=== PATIENT | male | born 1930 | race Caucasian/White ===

== ENCOUNTER 2018-07-12 10:06 | Inpatient (IN) | payer MEDICARE, BC ==
[~2018-07-12 10:06] MED LIST: ISOVUE-370 76%-LOCM 1 ML ONE
--- NOTE | 2018-07-12 10:37 | CT ---
CT BRAIN PERFORMED WITHOUT CONTRAST ENHANCEMENT: History: Stroke alert. Patient has ataxia and right facial droop, slurred speech. Comparison: 11-27-12 FINDINGS: There is generalized ventricular and sulcal prominence. There is decreased attenuation of the periven tricular white matter. No signs of intracerebral hemorrhage or extraaxial fluid collections. Mastoid air cells are clear. The right maxillary sinus is completely opacified. IMPRESSION: No acute intracranial abnormality. Findings telephoned to Dr. Mccoy at 1020 hours. POS: [facility]
[2018-07-12 10:43] LABS: PTT 26.1 SEC (22.9-36.1); Prothrombin Time 13.7 SEC (12.0-14.7)
[2018-07-12 10:47] LABS: #Eosinphils 0.1 thou/uL (0.0-0.7); #Lymphocytes 0.9 thou/uL (1.20-3.40); #Monocytes 0.8 thou/uL (0.11-0.59); #Neutrophils 6.5 thou/uL (1.40-6.50); %Basophils 0.3 % (0.0-1.0); %Eosinophils 0.7 % (0.0-10.0); %Lymphocytes 11.2 % (21.0-51.0); %Monocytes 9.2 % (0.0-10.0); %Neutrophils 78.6 % (42.0-75.0); Hemoglobin 10.2 g/dL (14.0-18.0); Mean Corpuscular Hemoglobin 33.4 pg (27.0-31.0); Mean Corpuscular Volume 98.3 fL (78.0-98.0); Mean Platelet Volume 8.2 fL (7.4-10.4); Platelet Count 107 thou/uL (130-400); Red Blood Cell (RBC) Count 3.06 mill/uL (4.70-6.10); White Blood Cell (WBC) Count 8.3 thou/uL (4.8-10.8)
[2018-07-12 10:52] LABS: ALT (SGPT) 22 U/L (8-55); AST (SGOT) 24 U/L (5-34); Albumin 4.4 g/dL (3.4-4.8); Alkaline Phosphatase 81 U/L (40-150); Anion Gap 17 mmol/L (10-20); BUN (Urea Nitrogen) 38 mg/dL (8.4-25.7); Bilirubin, Total 0.8 mg/dL (0.2-1.2); CK (CPK) 989 U/L (30-200); Calc. Creatinine Clearance 0 mL/min (70-130); Calcium 9.6 mg/dL (7.8-10.44); Carbon Dioxide 17 mmol/L (23-31); Chloride 105 mmol/L (98-107); Estimated GFR-MDRD 35; Globulin 3.1 g/dL (2.4-3.5); Glucose 233 mg/dL (83-110); Potassium 5.3 mmol/L (3.5-5.1); Protein, Total 7.5 g/dL (5.8-8.1); Sodium 134 mmol/L (136-145)
[2018-07-12 10:55] LABS: Troponin I 0.032 ng/mL (< 0.028)
[2018-07-12 10:57] LABS: PLT Morphology Comment Appears Decreased; RBC Morphology Normal
[2018-07-12 10:58] LABS: CKMB 9.1 ng/mL (0-6.6)
--- NOTE | 2018-07-12 11:25 | CT ---
CT ANGIOGRAM HEAD WITH CONTRAST: CT ANGIOGRAM NECK WITH CONTRAST: HISTORY: Stroke alert. Slurred speech. Ataxia. Right facial droop. COMPARISON: CT brain from the same day. TECHNIQUE: A CT angiogram of the head and neck were performed after the intravenous administration of contrast, and 3D rendering was provided. FINDINGS: There is a calcified scar in the right lung apex. Cervical spine alignment is normal. Moderate dege nerative changes throughout the cervical spine. There appears to be a left-sided glenohumeral joint effusion, which may be degenerative in nature. Old right clavicular fracture. No cervical adenopathy. There is soft tissue filling of the right maxillary sinus with bulging of the infundibulum. This may be sequela of chronic sinusitis. VESSELS: The aorta is unremarkable. The right vertebral artery origin is patent. The left vertebra l artery is dominant. The left vertebral artery origin is patent. There is approximately 50% narrow ing of the origin of the left vertebral artery due to calcific plaque. The right common carotid artery origin is patent. Mild atherosclerotic plaque of the carotid bulb. Using NASCET criteria, there is no hemodynamically significant stenosis of the right internal carotid artery. The left common carotid artery origin is patent. Using NASCET criteria, no hemodynamically significa nt stenosis of the left internal carotid artery. The [place] is patent. No senescent thrombosis or aneurysm formation. IMPRESSION: 1. No [place] thrombosis, stenosis, or aneurysm formation. 2. Using NASCET criteria, no hemodynamically significant stenosis of the internal carotid arteries. 3. Approximately 50% stenosis at the origin of the left vertebral artery due to calcific plaque. CODE CR (DR. BROCK AT 10:43 AM) POS: [facility]
[2018-07-12 13:08] LABS: Bilirubin Negative (Negative); Blood, Urine Large (Negative); Clarity CLEAR (Clear); Glucose, Urine (Dipstick) Negative (Negative); Leukocyte Negative (Negative); Nitrite Negative (Negative); Protein, Urine (Dipstick) Trace mg/dL (Neg-Trace); Urobilinogen 0.2 mg/dL (0.2-1.0)
[2018-07-12 13:11] LABS: Bacteria/HPF None Seen HPF (None Seen); Hyaline Casts/LPF 0-3 HYALINE CAST LPF (0-3 Hyaline); Pathc Cast-AUWi Flag 0.14 (0-2.49); RBC/HPF 0-3 HPF (0-3); Squamous Epithelial None Seen HPF (0-3); WBC/HPF None Seen HPF (0-3)
[2018-07-12] MEDS ORDERED: Dextrose 5% in Water 1,000 ML IV PRN (14:48)
[2018-07-12] MEDS ORDERED: HumaLOG 300 UNITS/3 ML VIAL SC PRN (14:48)
[2018-07-12] MEDS ORDERED: Mag-Al 1200 mg/1200 mg/30 ML UDCUP PO PRN (14:48)
[2018-07-12] MEDS ORDERED: Loperamide HCl 2 MG CAP PO PRN (14:48)
[2018-07-12] MEDS ORDERED: Dextrose 50% Abboject 50 ML SYRINGE SLOW IVP PRN (14:48)
[2018-07-12] MEDS ORDERED: Senokot 8.6 MG TAB PO PRN (14:48)
[2018-07-12] MEDS ORDERED: Ondansetron ODT 4 MG TAB PO PRN (14:48)
[2018-07-12] MEDS ORDERED: Ondansetron HCl/PF 4 MG/2 ML Vial IVP PRN (14:48)
--- NOTE | 2018-07-12 15:00 | HP ---
PRIMARY CARE PHYSICIAN: Dr. Sami Mckeon. REASON FOR ADMISSION: Stroke-like symptoms. HISTORY OF PRESENT ILLNESS: An 87-year-old male who has underlying history of hypertension, diabetes type 2, dyslipidemia, benign enlargement of prostate, peripheral vascular disease who lives at home alone. The patient has pick pulling machine tender who remains during daytime, but during night time, the pat ient remains by himself. Last night, the patient tried to go to bathroom, he fell down on the floor. Subsequently, he was not able to get up from the floor. He remains on the floor entire night, time is not known. This morning when pick pulling machine tender went to his house, he was found on the floor, at that julio e paramedics were called. Paramedics noted that patient was having right-sided facial droop. He was having some weakness on the right side and that is why patient was transferred to [facility] Room. Stroke alert was initiated. In the emergency room when ER physician evaluated at that time, his facial droop was not able to be elicited. His speech was slurred and he was not having an y more weakness. Initial NIH score was 7 and subsequently reduced to 4. The patient was not a armando date for any TPA given uncertain onset of time and improvement in symptoms. The patient had CT brain and CT angiography which was negative for any acute stroke. Routine blood tests showed rhabdomyolys is and acute kidney failure. The patient is being admitted to stroke floor for further evaluation. The patient did not have any chest pain, palpitation, or dizziness. The patient's pick pulling machine tender noticed that he was having initially diplopia at home, but in the emergency room that diplopia completely res olved. Web Marketing Strategist is present at bedside who reports that the patient's speech is still not normal. Bola colón did not have any fever, chills, UTI symptoms. He denies any constipation, diarrhea, melena, or hem atochezia. REVIEW OF SYSTEMS: Please see my HPI for pertinent positive and negative. All other review of syste ms reviewed and negative except as mentioned in the HPI. Constitutional: Weight loss or gain, ability to conduct usual activities. Skin: Rash, itching. Eyes: Double vision, pain. ENT/Mouth: Nose bleeding, neck stiffness, pain, tenderness. Cardiovascular: Palpitations, dyspnea on exertion, orthopnea. Respiratory: Shortness of breath, wheezing, cough, hemoptysis, fever or night sweats. Gastrointestinal: Poor appetite, abdominal pain, heartburn, nausea, vomiting, constipation, or diarrhea. Genitourinary: Urgency, frequency, dysuria, nocturia. Musculoskeletal: Pain, swelling. Neurologic/Psychiatric: Anxiety, depression. Allergy/Immunologic: Skin rash, bleeding tendency. ALLERGIES: No known drug allergies. CURRENT HOME MEDICATIONS: Terazosin 10 mg p.o. daily, metformin 1000 mg p.o. b.i.d., ramipril 5 mg p .o. daily, pravastatin 20 mg p.o. daily, Flomax 0.4 mg daily, cilostazol 100 mg daily, aspirin 81 mg p.o. daily, vitamin D3 5000 units p.o. daily, calcium with magnesium 1 tablet daily, fish oil 1 capsu le daily, Januvia 50 mg daily. PAST MEDICAL HISTORY: Diabetes type 2, hypertension, history of myocardial infarction in 2005, coron shadi artery disease, peripheral vascular disease, dyslipidemia, benign enlargement of prostate. PAST SURGICAL HISTORY: Appendicectomy, left knee replacement, CABG. PAST PSYCHIATRIC HISTORY: Reviewed and negative. SOCIAL HISTORY: The patient lives at home by himself. He has pick pulling machine tender during daytime. He lives al one during night time. He is a former smoker. He quit smoking more than 10 years ago. He denies an y alcohol or other illicit drug abuse. FAMILY HISTORY: No strong family history of premature coronary artery disease, stroke or cancer. EMERGENCY ROOM COURSE: The patient is given IV fluid and aspirin. PHYSICAL EXAMINATION: VITAL SIGNS: On arrival, blood pressure 161/64, pulse 96 and regular, respiratory rate 18, temperatu re 98.5, saturation 97% on room air, weight 80.3 kilograms. GENERAL: The patient is currently alert, awake, follows simple command, dysarthric. HEAD: Normocephalic, atraumatic. EYES: Pupils round, reactive to light. Extraocular muscle intact. ENT: Oropharynx within normal limits. Moist mucous membranes. No oral lesion, no pharyngeal erythe ma, no exudate. NECK: Supple, no JVD, no thyromegaly, no carotid bruit. LUNGS: Clear to auscultation without any rhonchi or rales. CARDIAC: S1, S2 regular. No gross murmur elicited, no gallop, no rub. ABDOMEN: Soft, bowel sounds present, nontender, nondistended. No organomegaly, no mass, no suprapub ic tenderness. BACK: Unremarkable, no CVA tenderness. EXTREMITIES: Upper extremity: Passive movement of all joints are normal. Lower extremity: No isaiah a. Good distal pulsation. The patient does have abrasion cyndy on both knees. NEUROLOGIC: The patient is alert, oriented x3. Slurred speech present. Face symmetrical. Motor ex amination normal on all 4 limbs. Sensation intact on all 4 limbs. The patient has difficulty perfor huong [id number] test, particularly on the left side, but the patient is not appropriately doing t esting despite recurrent explanation so not reliable. PSYCHIATRIC: Normal affect. SKIN: No skin rash. SIGNIFICANT LABORATORY DATA: EKG showing complete right bundle branch block pattern, first degree AV block, nonspecific ST-T changes. CT brain based on my review, no acute intracranial process. CT an giography head and neck negative for any acute blood clot. CBC: WBC 8.3, hemoglobin 10.2, platelet 107. INR 1.0. BMP: Sodium 134, potassium 5.3, chloride 105, carbon dioxide 17, anion gap 17, BUN 3 8, creatinine 1.85, glucose 233, calcium 9.6. LFT: AST 24, ALT 22, alkaline phosphatase 81, albumin 4.4, CK 1989, CK-MB 9.1, troponin I 0.032. Urinalysis normal other than blood large. ASSESSMENT AND PLAN: 1. Stroke-like symptoms. The patient had a fall last night, so onset was not clear. He was found w ith facial droop on the right side and some equivocal finding of cerebellar sign. He still has dysar thria, so presentation is pretty much atypical. His CT [place] angiography, brain perfusion study, and CT brain is negative. He needs more investigation to define the presentation. He is not a candidate for TPA. At this point, the patient will be admitted to stroke floor. Entire stroke te am including Neurology will be consulted. We will obtain MRI brain to rule out any acute stroke as w ell as we will obtain echocardiography to assess ejection fraction and other structural abnormality. We will monitor on telemetry. We will start aspirin 325 mg p.o. daily. We will continue with Lipit or 40 mg p.o. at bedtime. We will also continue blood pressure medication as needed basis only. We will hold his ramipril because of acute kidney injury as well as hyperkalemia. We will repeat total CK as well given we are starting Lipitor on top he has rhabdomyolysis. 2. Diabetes type 2. We will hold on metformin therapy because of renal failure. We will continue w ith insulin as per sliding scale per protocol. Diabetic diet will be given. We will continue Januvi a 50 mg p.o. daily. 3. Benign enlargement of prostate. We will continue Flomax 0.4 mg p.o. daily, terazosin 10 mg p.o. daily. 4. Peripheral arterial disease. We will continue cilostazol 100 mg p.o. daily. 5. Acute rhabdomyolysis from fall and being on the floor for entire night. The patient will be give n IV fluid and will repeat total CK level tomorrow. 6. Acute kidney failure. The patient will be given IV fluid and will repeat BMP tomorrow. I will a void nephrotoxin agent. 7. Abnormal electrolytes with hyponatremia and hyperkalemia. Because of this, the patient will be g iven IV fluid and we will hold on ramipril therapy. 8. Elevated troponin, most likely related with rhabdomyolysis, but we will do serial cardiac enzymes x3 to rule out acute coronary syndrome and we will continue with echocardiography. 9. Macrocytic anemia and thrombocytopenia. We will monitor platelet count. We will start folic aci d and vitamin B12 therapy. 10. Deep venous thrombosis prophylaxis, heparin 5000 units subcu twice daily, monitor platelet count . Gastrointestinal prophylaxis, Protonix 40 mg p.o. daily. CODE STATUS: The patient is FULL CODE. The patient does not have any surrogate decision maker at th is point. Disposition plan based on clinical course. We are expecting patient's stay in hospital more than 2 m idnights. Plan of care discussed with the patient and family member at bedside in the emergency room .
[2018-07-12] MEDS: Sodium Chloride 0.9% 1,000 ML IV SCH ×2 (15:24→23:54)
[2018-07-12 15:37] LABS: Troponin I 0.063 ng/mL (< 0.028)
[2018-07-12 15:42] VITALS: BMI 29.7
[2018-07-12 15:44] LABS: CKMB 16.1 ng/mL (0-6.6)
[2018-07-12 18:23] LABS: Troponin I 0.054 ng/mL (< 0.028)
[2018-07-12 18:25] LABS: CKMB 15.6 ng/mL (0-6.6); Critical Call CKMBM RESULT DECREASING
[2018-07-12] MEDS: Atorvastatin Calcium 40 MG TAB PO SCH (20:15)
[2018-07-12] MEDS: Terazosin HCl 5 MG CAP PO SCH (20:15)
[2018-07-12] MEDS: Heparin 5,000 UNITS/ML VIAL SC SCH (21:54)
[2018-07-13] MEDS: HYDROcodone/Acetaminophen 5/325 mg Tablet PO PRN
[2018-07-13 03:40] LABS: #Eosinphils 0.2 thou/uL (0.0-0.7); #Monocytes 0.5 thou/uL (0.11-0.59); #Neutrophils 3.6 thou/uL (1.40-6.50); %Basophils 0.8 % (0.0-1.0); %Eosinophils 2.9 % (0.0-10.0); %Lymphocytes 18.6 % (21.0-51.0); %Neutrophils 67.7 % (42.0-75.0); Hemoglobin 8.9 g/dL (14.0-18.0); Mean Corpuscular HGB CONC 33.8 g/dL (32.0-36.0); Mean Corpuscular Hemoglobin 33.3 pg (27.0-31.0); Mean Corpuscular Volume 98.5 fL (78.0-98.0); Mean Platelet Volume 7.9 fL (7.4-10.4); Platelet Count 97 thou/uL (130-400); RBC Distribution Width 13.9 % (11.5-14.5); Red Blood Cell (RBC) Count 2.66 mill/uL (4.70-6.10); White Blood Cell (WBC) Count 5.3 thou/uL (4.8-10.8)
[2018-07-13 03:48] LABS: ALT (SGPT) 27 U/L (8-55); AST (SGOT) 51 U/L (5-34); Albumin 3.8 g/dL (3.4-4.8); Alkaline Phosphatase 68 U/L (40-150); Anion Gap 14 mmol/L (10-20); BUN (Urea Nitrogen) 34 mg/dL (8.4-25.7); Bilirubin, Total 0.6 mg/dL (0.2-1.2); CK (CPK) 2319 U/L (30-200); Calc. Creatinine Clearance 37 mL/min (70-130); Calcium 8.9 mg/dL (7.8-10.44); Carbon Dioxide 20 mmol/L (23-31); Cardiac Risk 1.8 (Less than 4.5); Chloride 107 mmol/L (98-107); Cholesterol 112 mg/dl (< 200 Desired); Estimated GFR-MDRD 43; Globulin 2.7 g/dL (2.4-3.5); Glucose 144 mg/dL (83-110); HDL Cholesterol 62 mg/dL (>60 Neg Risk); LDL Cholesterol, Calculated 33 mg/dL; Potassium 4.5 mmol/L (3.5-5.1); Protein, Total 6.5 g/dL (5.8-8.1); Sodium 136 mmol/L (136-145); Triglycerides 83 mg/dL (Less than 150)
--- NOTE | 2018-07-13 08:54 | CON ---
DATE OF CONSULTATION: 07/12/2018 REFERRING PROVIDER: Soni Gonzalez M.D. REASON FOR CONSULTATION: Altered mental status. HISTORY OF PRESENT ILLNESS: Mr. Bashir is a pleasant 87-year-old male, who has been consulted for evaluation of altered mental status. History was obtained partially from the patient and majority of the history was obtained from patient's dictated H&P note. The patient who is a very poor historian who states that he lives by himself. He normally has difficulty with getting onto his bed as well as getting off his bed as his bed is placed at a higher level that he cannot reach. He states that yesterday he was trying to come off the bed and could not support himself and fell on to the floor, which prompted them to make him come to the emergency room. Per dictated H&P note, the patient was found on the floor by his caregiver. He was last seen normal by his caregiver the day before. He normally lives by himself independently. There is a caregiver who goes and sits with him during the daytime; however, during the nighttime, he is by himself. Currently, he denies any headache, chest pain, palpitation, vision changes, numbness, tingling, or weakness. PAST MEDICAL HISTORY: Significant for hypertension, diabetes, history of [place], coronary artery disease, peripheral vascular disease, dyslipidemia, BPH. PAST SURGICAL HISTORY: Significant for appendectomy, left knee replacement, and CABG. SOCIAL HISTORY: He lives alone independently. He does not smoke cigarettes, drink alcohol, or use illicit drugs. FAMILY HISTORY: Noncontributory. CURRENT MEDICATIONS: Reviewed. ALLERGIES: Include PENICILLIN. REVIEW OF SYSTEMS: As mentioned above in HPI, otherwise negative. PHYSICAL EXAMINATION: VITAL SIGNS: Blood pressure of 143/60, pulse of 86, temperature of 98, respirations of 16, O2 sats of 97% on room air. GENERAL: Well-developed, well-nourished male in no apparent distress. RESPIRATORY: Clear to auscultation bilaterally. CARDIOVASCULAR: Regular rate and rhythm. NEUROLOGIC: Mental Status: The patient is awake, alert, oriented to person only. He tends to be very tangential during conversation. Speech and language appears fluent. Cranial nerves: Pupils are 3 mm and reactive. Visual bejarano are intact. External muscles are intact. No nystagmus noted. Face is symmetric. Tongue and uvula are midline. Motor exam showed 5/5 strength in both upper and lower extremities. Sensory: Sensation is intact and symmetric. Babinski: Plantar responses flexion bilaterally. Gait, Romberg, and coordination could not be tested. LABORATORY DATA: Reviewed, which included CBC, CMP, urinalysis which is significant for sodium 134, potassium 5.3, BUN of 38, creatinine of 1.5, glucose is 173. Troponin was 0.054. CK-MB of 15.6. CT head without contrast was reviewed, which showed no acute intracranial abnormality. CT angiogram of the head and neck were reviewed, which showed no acute intracranial or extracranial vascular abnormality. IMPRESSION: 1. Altered mental status, likely toxic-metabolic encephalopathy. 2. Malignant hypertension. Mr. Bashir is a pleasant 87-year-old male, who presented after being found down on the floor. I reviewed his CT head and CT angiogram, which were nonrevealing. In my opinion, his symptoms were likely indicative of toxic- metabolic encephalopathy and underlying dementia that may be affecting his cognitive abilities. Continue supportive care. I will recommend obtaining MRI brain without contrast in the morning. If it is normal, then the patient will continue with current medical management and no further neurological workup would be needed. Thank you for your consultation. MARTHA
[2018-07-13] MEDS: Folic Acid 1 MG TAB PO SCH (09:49)
[2018-07-13] MEDS: Cilostazol 100 MG TAB PO SCH (09:49)
[2018-07-13] MEDS: Cyanocobalamin (Vitamin B-12) 1,000 MCG TAB PO SCH (09:49)
[2018-07-13] MEDS: Aspirin 325 MG TAB PO SCH (09:49)
[2018-07-13] MEDS: Tamsulosin HCl 0.4 MG CAP PO SCH (09:49)
[2018-07-13] MEDS: Heparin 5,000 UNITS/ML VIAL SC SCH ×2 (09:51→22:12)
[2018-07-13] MEDS: Alogliptin 6.25 MG TAB PO SCH (10:02)
--- NOTE | 2018-07-13 11:13 | MRI ---
MRI BRAIN WITHOUT CONTRAST: Date: 07/13/18 HISTORY: TIA. FINDINGS: Correlation is made with previous day's CT scan. No restricted diffusion is seen. Changes of cortical atrophy and chronic small vessel ischemic diseas e are again seen. Ventricular size is appropriate and the basilar cisterns are patent. No evidence of infarct, hemorrhage, midline shift, or abnormal extra-axial fluid collections are seen. There is muc osal disease in the paranasal sinuses. IMPRESSION: No evidence of acute intracranial process. POS: [facility]
--- NOTE | 2018-07-13 12:31 | PDOC.PN ---
- Subjective Encounter Start Date: 07/13/18 Encounter Start Time: 07:30 -: old records requested/rev Patient seen and examined. No new complaints. No overnight events pt is very weak - Objective Resuscitation Status: Resuscitation Status FULL:Full Resuscitation MAR Reviewed: Yes Vital Signs & Weight: Vital Signs (12 hours) Temp Pulse Resp BP Pulse Ox 07/13/18 11:34 98.8 F 66 16 123/54 L 95 07/13/18 08:10 99.2 F 82 16 93 L 07/13/18 07:43 99.2 F 82 16 153/67 H 93 L 07/13/18 04:00 98.6 F 74 16 116/61 95 Weight Weight 173 lb 1.6 oz I&O: 07/12/18 07/13/18 07/14/18 06:59 06:59 06:59 Intake Total 1740 Output Total 300 Balance 1440 Result Diagrams: 07/13/18 03:19 07/13/18 03:19 Additional Labs: Accuchecks 07/13/18 07/13/18 07/12/18 10:43 05:41 20:57 POC Glucose 170 H 144 H 173 H 07/12/18 16:52 POC Glucose 143 H Radiology Reviewed by me: Yes (mri is normal) EKG Reviewed by me: Yes Phys Exam - Physical Examination Constitutional: NAD HEENT: PERRLA, moist MMs, sclera anicteric Neck: no JVD, supple Respiratory: no wheezing, no rales, no rhonchi Cardiovascular: RRR, no significant murmur, no rub Gastrointestinal: soft, non-tender, no distention, positive bowel sounds Musculoskeletal: no edema, pulses present Neurological: non-focal, normal sensation, moves all 4 limbs Lymphatic: no nodes Psychiatric: normal affect Deviation from normal: hard of hearing Skin: no rash, normal turgor Dx/Plan (1) Acute kidney failure Status: Acute Comment: improving (2) Elevated troponin Code(s): R74.8 - ABNORMAL LEVELS OF OTHER SERUM ENZYMES Status: Acute Comment: due to high total CK (3) Physical deconditioning Code(s): R53.81 - OTHER MALAISE Status: Acute (4) Rhabdomyolysis Code(s): M62.82 - RHABDOMYOLYSIS Status: Acute (5) Stroke-like symptoms Code(s): R29.90 - UNSPECIFIED SYMPTOMS AND SIGNS INVOLVING THE NERVOUS SYSTEM Status: Acute Comment: ruled out stroke (6) Diabetes type 2, controlled Code(s): E11.9 - TYPE 2 DIABETES MELLITUS WITHOUT COMPLICATIONS Status: Chronic (7) Dyslipidemia Code(s): E78.5 - HYPERLIPIDEMIA, UNSPECIFIED Status: Chronic (8) Hypertension Code(s): I10 - ESSENTIAL (PRIMARY) HYPERTENSION Status: Chronic (9) Macrocytic anemia Code(s): D53.9 - NUTRITIONAL ANEMIA, UNSPECIFIED Status: Chronic (10) PAD (peripheral artery disease) Code(s): I73.9 - PERIPHERAL VASCULAR DISEASE, UNSPECIFIED Status: Chronic (11) Hyperkalemia Code(s): E87.5 - HYPERKALEMIA Status: Resolved - Plan cont current plan of care, plan discussed w/ family, PT/OT, social insurance analyst * continue IVF * repeat labs tomorrow * if ck still high or going up, then will dc statins * medication reviewed as below * symptomatic treatment * neurology recommendation noted * today pt/ot * may need placement * discussed with career development associate. Review of Systems - Review of Systems Constitutional: weakness, malaise. negative: fever, chills, sweats, other ENT: negative: Ear Pain, Ear Discharge, Nose Pain, Nose Discharge, Nose Congestion, Mouth Pain, Mouth Swelling, Throat Pain, Throat Swelling, Other Respiratory: negative: Cough, Dry, Shortness of Breath, Hemoptysis, SOB with Excertion, Pleuritic Pain, Sputum, Wheezing Cardiovascular: negative: chest pain, palpitations, orthopnea, paroxysmal nocturnal dyspnea, edema, light headedness, other Gastrointestinal: negative: Nausea, Vomiting, Abdominal Pain, Diarrhea, Constipation, Melena, Hematochezia, Other Genitourinary: negative: Dysuria, Frequency, Incontinence, Hematuria, Retention , Other Musculoskeletal: negative: Neck Pain, Shoulder Pain, Arm Pain, Back Pain, Hand Pain, Leg Pain, Foot Pain, Other Skin: negative: Rash, Lesions, [place], Bruising, Other Neurological: negative: Weakness, Numbness, Incoordination, Change in Speech, Confusion, Seizures, Other - Medications/Allergies Allergies/Adverse Reactions: Allergies Allergy/AdvReac Type Severity Reaction Status Date / Time penicillin G Allergy Rash Verified 07/12/18 14:49 Medications: Current Medications Acetaminophen (Tylenol) 650 mg PO Q4H PRN PRN Reason: Headache/Fever or Pain Hydrocodone Bitart/Acetaminophen ([place] 5/325) 1 tab PO Q4H PRN PRN Reason: Moderate Pain (4-6) Last Admin: 07/13/18 00:00 Dose: 1 tab Al Hydroxide/Mg Hydroxide (Maalox) 30 ml PO Q6H PRN PRN Reason: Heartburn or Indigestion Alogliptin Benzoate (Alogliptin) 12.5 mg PO DAILY [facility] Last Admin: 07/13/18 10:02 Dose: 12.5 mg Aspirin (Aspirin) 325 mg PO DAILY [facility] Last Admin: 07/13/18 09:49 Dose: 325 mg Atorvastatin Calcium (Lipitor) 40 mg PO HS [facility] Last Admin: 07/12/18 20:15 Dose: 40 mg Cholecalciferol (Vitamin D3) 5,000 units PO DAILY [facility] Last Admin: 07/13/18 09:49 Dose: 5,000 units Cilostazol (Pletal) 100 mg PO DAILY [facility] Last Admin: 07/13/18 09:49 Dose: 100 mg Cyanocobalamin (Vitamin B-12) 1,000 mcg PO DAILY [facility] Last Admin: 07/13/18 09:49 Dose: 1,000 mcg Dextrose/Water (Dextrose 50%) 25 gm SLOW IVP PRN PRN PRN Reason: Hypoglycemia Folic Acid (Folvite) 1 mg PO DAILY [facility] Last Admin: 07/13/18 09:49 Dose: 1 mg Glucagon (Glucagon) 1 mg IM PRN PRN PRN Reason: Hypoglycemia Heparin Sodium (Porcine) (Heparin) 5,000 units SC BID [facility] Last Admin: 07/13/18 09:51 Dose: 5,000 units Dextrose/Water (D5w) 1,000 mls @ 0 mls/hr IV .Q0M PRN PRN Reason: Hypoglycemia Sodium Chloride (Normal Saline 0.9%) 1,000 mls @ 100 mls/hr IV .Q10H [facility] Last Admin: 07/12/18 23:54 Dose: 1,000 mls Insulin Human Lispro (Humalog) 0 units SC .MODERATE SLIDING SC PRN PRN Reason: Moderate Correctional Scale Insulin Human Lispro (Humalog) 0 units SC .BEDTIME SLIDING SC PRN PRN Reason: Bedtime Correctional Scale Loperamide HCl (Imodium) 2 mg PO PRN PRN PRN Reason: Diarrhea/Loose Stools Magnesium Hydroxide (Milk Of Magnesium) 30 ml PO DAILYPRN PRN PRN Reason: Constipation Ondansetron HCl (Zofran Odt) 4 mg PO Q6H PRN PRN Reason: Nausea/Vomiting Ondansetron HCl (Zofran) 4 mg IVP Q6H PRN PRN Reason: Nausea/Vomiting Pantoprazole Sodium (Protonix) 40 mg PO DAILY [facility] Last Admin: 07/13/18 09:49 Dose: 40 mg Senna (Senokot) 2 tab PO HSPRN PRN PRN Reason: Constipation Sodium Chloride (Flush - Normal Saline) 10 ml IVF PRN PRN PRN Reason: Saline Flush Tamsulosin HCl (Flomax) 0.4 mg PO DAILY [facility] Last Admin: 07/13/18 09:49 Dose: 0.4 mg Terazosin HCl (Hytrin) 10 mg PO [facility] Last Admin: 07/12/18 20:15 Dose: 10 mg
[2018-07-13] MEDS: Terazosin HCl 5 MG CAP PO SCH (20:59)
[2018-07-13] MEDS: Sodium Chloride 0.9% 1,000 ML IV SCH (20:59)
[2018-07-13] MEDS: Atorvastatin Calcium 40 MG TAB PO SCH (20:59)
[2018-07-14] MEDS: Sodium Chloride 0.9% 1,000 ML IV SCH ×3 (05:07→18:23)
[2018-07-14] MEDS: Folic Acid 1 MG TAB PO SCH (08:36)
[2018-07-14] MEDS: Aspirin 325 MG TAB PO SCH (08:36)
[2018-07-14] MEDS: Heparin 5,000 UNITS/ML VIAL SC SCH ×2 (08:36→20:08)
[2018-07-14] MEDS: HYDROcodone/Acetaminophen 5/325 mg Tablet PO PRN (08:36)
[2018-07-14] MEDS: Cilostazol 100 MG TAB PO SCH (08:36)
[2018-07-14] MEDS: Tamsulosin HCl 0.4 MG CAP PO SCH (08:37)
[2018-07-14] MEDS: Cyanocobalamin (Vitamin B-12) 1,000 MCG TAB PO SCH (08:37)
[2018-07-14] MEDS: Alogliptin 6.25 MG TAB PO SCH (08:37)
[2018-07-14 09:03] LABS: #Eosinphils 0.1 thou/uL (0.0-0.7); #Monocytes 0.5 thou/uL (0.11-0.59); #Neutrophils 2.9 thou/uL (1.40-6.50); %Basophils 0.9 % (0.0-1.0); %Eosinophils 3.1 % (0.0-10.0); %Lymphocytes 22.2 % (21.0-51.0); %Monocytes 10.3 % (0.0-10.0); %Neutrophils 63.5 % (42.0-75.0); Hemoglobin 9.5 g/dL (14.0-18.0); Mean Corpuscular HGB CONC 35.4 g/dL (32.0-36.0); Mean Corpuscular Hemoglobin 34.1 pg (27.0-31.0); Mean Corpuscular Volume 96.2 fL (78.0-98.0); Mean Platelet Volume 8.1 fL (7.4-10.4); Platelet Count 107 thou/uL (130-400); RBC Distribution Width 13.6 % (11.5-14.5); Red Blood Cell (RBC) Count 2.79 mill/uL (4.70-6.10); White Blood Cell (WBC) Count 4.5 thou/uL (4.8-10.8)
[2018-07-14 09:22] LABS: Anion Gap 13 mmol/L (10-20); BUN (Urea Nitrogen) 28 mg/dL (8.4-25.7); CK (CPK) 1793 U/L (30-200); Calc. Creatinine Clearance 37 mL/min (70-130); Calcium 9.3 mg/dL (7.8-10.44); Carbon Dioxide 21 mmol/L (23-31); Chloride 106 mmol/L (98-107); Estimated GFR-MDRD 44; Glucose 145 mg/dL (83-110); Potassium 4.3 mmol/L (3.5-5.1); Sodium 136 mmol/L (136-145)
--- NOTE | 2018-07-14 10:50 | PDOC.PN ---
- Subjective Encounter Start Date: 07/14/18 Encounter Start Time: 07:45 Patient seen and examined. No new complaints. No overnight events - Objective Resuscitation Status: Resuscitation Status FULL:Full Resuscitation MAR Reviewed: Yes Vital Signs & Weight: Vital Signs (12 hours) Temp Pulse Resp BP Pulse Ox 07/14/18 08:00 98.7 F 66 16 138/65 92 L 07/14/18 03:30 98.1 F 76 18 119/60 92 L 07/13/18 23:23 98.9 F 82 20 120/64 93 L Weight Weight 173 lb 1.6 oz I&O: 07/13/18 07/14/18 07/15/18 06:59 06:59 06:59 Intake Total 1740 240 Output Total 300 200 Balance 1440 -200 240 Result Diagrams: 07/14/18 08:23 07/14/18 08:23 Additional Labs: Accuchecks 07/14/18 07/14/18 07/13/18 10:38 05:37 21:01 POC Glucose 174 H 147 H 200 H 07/13/18 07/13/18 16:58 10:43 POC Glucose 164 H 170 H EKG Reviewed by me: Yes Phys Exam - Physical Examination Constitutional: NAD HEENT: PERRLA, moist MMs, sclera anicteric Neck: no JVD, supple Respiratory: no wheezing, no rales, no rhonchi Cardiovascular: RRR, no significant murmur, no rub Gastrointestinal: soft, non-tender, no distention, positive bowel sounds Musculoskeletal: no edema, pulses present Neurological: non-focal, normal sensation, moves all 4 limbs Lymphatic: no nodes Psychiatric: normal affect, A&O x 3 Skin: no rash, normal turgor Dx/Plan (1) Acute kidney failure Status: Acute Comment: improving (2) Elevated troponin Code(s): R74.8 - ABNORMAL LEVELS OF OTHER SERUM ENZYMES Status: Acute Comment: due to high total CK (3) Physical deconditioning Code(s): R53.81 - OTHER MALAISE Status: Acute (4) Rhabdomyolysis Code(s): M62.82 - RHABDOMYOLYSIS Status: Acute (5) Stroke-like symptoms Code(s): R29.90 - UNSPECIFIED SYMPTOMS AND SIGNS INVOLVING THE NERVOUS SYSTEM Status: Acute Comment: ruled out stroke (6) Diabetes type 2, controlled Code(s): E11.9 - TYPE 2 DIABETES MELLITUS WITHOUT COMPLICATIONS Status: Chronic (7) Dyslipidemia Code(s): E78.5 - HYPERLIPIDEMIA, UNSPECIFIED Status: Chronic (8) Hypertension Code(s): I10 - ESSENTIAL (PRIMARY) HYPERTENSION Status: Chronic (9) Macrocytic anemia Code(s): D53.9 - NUTRITIONAL ANEMIA, UNSPECIFIED Status: Chronic (10) PAD (peripheral artery disease) Code(s): I73.9 - PERIPHERAL VASCULAR DISEASE, UNSPECIFIED Status: Chronic (11) Hyperkalemia Code(s): E87.5 - HYPERKALEMIA Status: Resolved - Plan cont current plan of care, PT/OT, social services manager * CK improving, creatinine is improving * pt refusing for placement, * continue IVF * continue PT * we recommend snu placement for his safety * medication reviewed as below * symptomatic treatment * expecting discharge over weekend. Review of Systems - Review of Systems Eyes: negative: Pain, Vision Change, Conjunctivae Inflammation, Eyelid Inflammation, Redness, Other ENT: negative: Ear Pain, Ear Discharge, Nose Pain, Nose Discharge, Nose Congestion, Mouth Pain, Mouth Swelling, Throat Pain, Throat Swelling, Other Respiratory: negative: Cough, Dry, Shortness of Breath, Hemoptysis, SOB with Excertion, Pleuritic Pain, Sputum, Wheezing Cardiovascular: negative: chest pain, palpitations, orthopnea, paroxysmal nocturnal dyspnea, edema, light headedness, other Gastrointestinal: negative: Nausea, Vomiting, Abdominal Pain, Diarrhea, Constipation, Melena, Hematochezia, Other Genitourinary: negative: Dysuria, Frequency, Incontinence, Hematuria, Retention , Other Musculoskeletal: negative: Neck Pain, Shoulder Pain, Arm Pain, Back Pain, Hand Pain, Leg Pain, Foot Pain, Other Skin: negative: Rash, Lesions, Cody, Bruising, Other - Medications/Allergies Allergies/Adverse Reactions: Allergies Allergy/AdvReac Type Severity Reaction Status Date / Time penicillin G Allergy Rash Verified 07/12/18 14:49 Medications: Current Medications Acetaminophen (Tylenol) 650 mg PO Q4H PRN PRN Reason: Headache/Fever or Pain Hydrocodone Bitart/Acetaminophen ([place] 5/325) 1 tab PO Q4H PRN PRN Reason: Moderate Pain (4-6) Last Admin: 07/14/18 08:36 Dose: 1 tab Al Hydroxide/Mg Hydroxide (Maalox) 30 ml PO Q6H PRN PRN Reason: Heartburn or Indigestion Alogliptin Benzoate (Alogliptin) 12.5 mg PO DAILY [facility] Last Admin: 07/14/18 08:37 Dose: 12.5 mg Aspirin (Aspirin) 325 mg PO DAILY [facility] Last Admin: 07/14/18 08:36 Dose: 325 mg Atorvastatin Calcium (Lipitor) 40 mg PO HS [facility] Last Admin: 07/13/18 20:59 Dose: 40 mg Cholecalciferol (Vitamin D3) 5,000 units PO DAILY [facility] Last Admin: 07/14/18 08:36 Dose: 5,000 units Cilostazol (Pletal) 100 mg PO DAILY [facility] Last Admin: 07/14/18 08:36 Dose: 100 mg Cyanocobalamin (Vitamin B-12) 1,000 mcg PO DAILY [facility] Last Admin: 07/14/18 08:37 Dose: 1,000 mcg Dextrose/Water (Dextrose 50%) 25 gm SLOW IVP PRN PRN PRN Reason: Hypoglycemia Folic Acid (Folvite) 1 mg PO DAILY [facility] Last Admin: 07/14/18 08:36 Dose: 1 mg Glucagon (Glucagon) 1 mg IM PRN PRN PRN Reason: Hypoglycemia Heparin Sodium (Porcine) (Heparin) 5,000 units SC BID [facility] Last Admin: 07/14/18 08:36 Dose: 5,000 units Dextrose/Water (D5w) 1,000 mls @ 0 mls/hr IV .Q0M PRN PRN Reason: Hypoglycemia Sodium Chloride (Normal Saline 0.9%) 1,000 mls @ 100 mls/hr IV .Q10H [facility] Last Admin: 07/14/18 05:07 Dose: Not Given Insulin Human Lispro (Humalog) 0 units SC .MODERATE SLIDING SC PRN PRN Reason: Moderate Correctional Scale Insulin Human Lispro (Humalog) 0 units SC .BEDTIME SLIDING SC PRN PRN Reason: Bedtime Correctional Scale Loperamide HCl (Imodium) 2 mg PO PRN PRN PRN Reason: Diarrhea/Loose Stools Magnesium Hydroxide (Milk Of Magnesium) 30 ml PO DAILYPRN PRN PRN Reason: Constipation Ondansetron HCl (Zofran Odt) 4 mg PO Q6H PRN PRN Reason: Nausea/Vomiting Ondansetron HCl (Zofran) 4 mg IVP Q6H PRN PRN Reason: Nausea/Vomiting Pantoprazole Sodium (Protonix) 40 mg PO DAILY [facility] Last Admin: 07/14/18 08:36 Dose: 40 mg Senna (Senokot) 2 tab PO HSPRN PRN PRN Reason: Constipation Sodium Chloride (Flush - Normal Saline) 10 ml IVF PRN PRN PRN Reason: Saline Flush Tamsulosin HCl (Flomax) 0.4 mg PO DAILY [facility] Last Admin: 07/14/18 08:37 Dose: 0.4 mg Terazosin HCl (Hytrin) 10 mg PO HS [facility] Last Admin: 07/13/18 20:59 Dose: 10 mg
[2018-07-14] MEDS: Terazosin HCl 5 MG CAP PO SCH (20:08)
[2018-07-14] MEDS: Atorvastatin Calcium 40 MG TAB PO SCH (20:08)
[2018-07-15] MEDS: HYDROcodone/Acetaminophen 5/325 mg Tablet PO PRN (04:02)
[2018-07-15] MEDS: Tamsulosin HCl 0.4 MG CAP PO SCH (08:03)
[2018-07-15] MEDS: Folic Acid 1 MG TAB PO SCH (08:03)
[2018-07-15] MEDS: Cilostazol 100 MG TAB PO SCH (08:04)
[2018-07-15] MEDS: Heparin 5,000 UNITS/ML VIAL SC SCH ×2 (08:04→20:52)
[2018-07-15] MEDS: Cyanocobalamin (Vitamin B-12) 1,000 MCG TAB PO SCH (08:04)
[2018-07-15] MEDS: Aspirin 325 MG TAB PO SCH (08:04)
[2018-07-15 08:19] LABS: Anion Gap 13 mmol/L (10-20); BUN (Urea Nitrogen) 29 mg/dL (8.4-25.7); CK (CPK) 902 U/L (30-200); Calc. Creatinine Clearance 37 mL/min (70-130); Calcium 8.8 mg/dL (7.8-10.44); Carbon Dioxide 21 mmol/L (23-31); Chloride 108 mmol/L (98-107); Estimated GFR-MDRD 44; Glucose 130 mg/dL (83-110); Potassium 4.1 mmol/L (3.5-5.1); Sodium 138 mmol/L (136-145)
[2018-07-15] MEDS: Alogliptin 6.25 MG TAB PO SCH (08:31)
[2018-07-15] MEDS: Milk Of Magnesia 30 ML UDCUP PO PRN (09:21)
--- NOTE | 2018-07-15 10:47 | PDOC.PN ---
- Subjective Encounter Start Date: 07/15/18 Encounter Start Time: 07:30 Patient seen and examined. No new complaints. No overnight events - Objective Resuscitation Status: Resuscitation Status FULL:Full Resuscitation MAR Reviewed: Yes Vital Signs & Weight: Vital Signs (12 hours) Temp Pulse Resp BP Pulse Ox 07/15/18 08:00 98.3 F 66 16 07/15/18 07:40 98.3 F 66 16 142/66 H 96 07/15/18 03:35 98.4 F 62 16 129/63 94 L 07/15/18 00:20 99.4 F 58 L 16 143/75 H 98 Weight Weight 173 lb 1.6 oz I&O: 07/14/18 07/15/18 07/16/18 06:59 06:59 06:59 Intake Total 1764 240 Output Total 200 350 Balance -200 1414 240 Result Diagrams: 07/14/18 08:23 07/15/18 07:42 Additional Labs: Accuchecks 07/15/18 07/14/18 07/14/18 06:31 20:15 16:35 POC Glucose 162 H 165 H 138 H 07/14/18 10:38 POC Glucose 174 H EKG Reviewed by me: Yes Phys Exam - Physical Examination Constitutional: NAD HEENT: PERRLA, moist MMs, sclera anicteric Neck: no JVD, supple Respiratory: no wheezing, no rales, no rhonchi Cardiovascular: RRR, no significant murmur, no rub Gastrointestinal: soft, non-tender, no distention, positive bowel sounds Musculoskeletal: no edema, pulses present Neurological: non-focal, normal sensation, moves all 4 limbs Lymphatic: no nodes Psychiatric: normal affect, A&O x 3 Deviation from normal: hard of hearing Skin: no rash, normal turgor Dx/Plan (1) Acute kidney failure Status: Acute Comment: improving (2) Elevated troponin Code(s): R74.8 - ABNORMAL LEVELS OF OTHER SERUM ENZYMES Status: Acute Comment: due to high total CK (3) Physical deconditioning Code(s): R53.81 - OTHER MALAISE Status: Acute (4) Rhabdomyolysis Code(s): M62.82 - RHABDOMYOLYSIS Status: Acute (5) Stroke-like symptoms Code(s): R29.90 - UNSPECIFIED SYMPTOMS AND SIGNS INVOLVING THE NERVOUS SYSTEM Status: Ruled-out Comment: ruled out stroke (6) Diabetes type 2, controlled Code(s): E11.9 - TYPE 2 DIABETES MELLITUS WITHOUT COMPLICATIONS Status: Chronic (7) Dyslipidemia Code(s): E78.5 - HYPERLIPIDEMIA, UNSPECIFIED Status: Chronic (8) Hypertension Code(s): I10 - ESSENTIAL (PRIMARY) HYPERTENSION Status: Chronic (9) Macrocytic anemia Code(s): D53.9 - NUTRITIONAL ANEMIA, UNSPECIFIED Status: Chronic (10) PAD (peripheral artery disease) Code(s): I73.9 - PERIPHERAL VASCULAR DISEASE, UNSPECIFIED Status: Chronic (11) Hyperkalemia Code(s): E87.5 - HYPERKALEMIA Status: Resolved (12) Thrombocytopenia Code(s): D69.6 - THROMBOCYTOPENIA, UNSPECIFIED Status: Acute (13) UTI (urinary tract infection) Status: Acute - Plan cont current plan of care, plan discussed w/ family, continue antibiotics, PT/OT , nursing home social worker * as urine culture positive for pseudomonas, will start iv levaquin * dc ivf * CK continue to improve so as renal function * pt agreed with snu placement, await arrangement * medication reviewed as below * symptomatic treatment. Review of Systems - Review of Systems Eyes: negative: Pain, Vision Change, Conjunctivae Inflammation, Eyelid Inflammation, Redness, Other ENT: negative: Ear Pain, Ear Discharge, Nose Pain, Nose Discharge, Nose Congestion, Mouth Pain, Mouth Swelling, Throat Pain, Throat Swelling, Other Respiratory: negative: Cough, Dry, Shortness of Breath, Hemoptysis, SOB with Excertion, Pleuritic Pain, Sputum, Wheezing Cardiovascular: negative: chest pain, palpitations, orthopnea, paroxysmal nocturnal dyspnea, edema, light headedness, other Gastrointestinal: negative: Nausea, Vomiting, Abdominal Pain, Diarrhea, Constipation, Melena, Hematochezia, Other Genitourinary: negative: Dysuria, Frequency, Incontinence, Hematuria, Retention , Other Musculoskeletal: negative: Neck Pain, Shoulder Pain, Arm Pain, Back Pain, Hand Pain, Leg Pain, Foot Pain, Other - Medications/Allergies Allergies/Adverse Reactions: Allergies Allergy/AdvReac Type Severity Reaction Status Date / Time penicillin G Allergy Rash Verified 07/12/18 14:49 Medications: Current Medications Acetaminophen (Tylenol) 650 mg PO Q4H PRN PRN Reason: Headache/Fever or Pain Hydrocodone Bitart/Acetaminophen ([place] 5/325) 1 tab PO Q4H PRN PRN Reason: Moderate Pain (4-6) Last Admin: 07/15/18 04:02 Dose: 1 tab Al Hydroxide/Mg Hydroxide (Maalox) 30 ml PO Q6H PRN PRN Reason: Heartburn or Indigestion Alogliptin Benzoate (Alogliptin) 12.5 mg PO DAILY [facility] Last Admin: 07/15/18 08:31 Dose: 12.5 mg Aspirin (Aspirin) 325 mg PO DAILY [facility] Last Admin: 07/15/18 08:04 Dose: 325 mg Atorvastatin Calcium (Lipitor) 40 mg PO HS [facility] Last Admin: 07/14/18 20:08 Dose: 40 mg Cholecalciferol (Vitamin D3) 5,000 units PO DAILY [facility] Last Admin: 07/15/18 08:03 Dose: 5,000 units Cilostazol (Pletal) 100 mg PO DAILY [facility] Last Admin: 07/15/18 08:04 Dose: 100 mg Cyanocobalamin (Vitamin B-12) 1,000 mcg PO DAILY [facility] Last Admin: 07/15/18 08:04 Dose: 1,000 mcg Dextrose/Water (Dextrose 50%) 25 gm SLOW IVP PRN PRN PRN Reason: Hypoglycemia Folic Acid (Folvite) 1 mg PO DAILY [facility] Last Admin: 07/15/18 08:03 Dose: 1 mg Glucagon (Glucagon) 1 mg IM PRN PRN PRN Reason: Hypoglycemia Heparin Sodium (Porcine) (Heparin) 5,000 units SC BID [facility] Last Admin: 07/15/18 08:04 Dose: 5,000 units Dextrose/Water (D5w) 1,000 mls @ 0 mls/hr IV .Q0M PRN PRN Reason: Hypoglycemia Levofloxacin 500 mg/ Device 100 mls @ 100 mls/hr IVPB Q24HR@0800 [facility] Last Admin: 07/15/18 08:03 Dose: 100 mls Insulin Human Lispro (Humalog) 0 units SC .MODERATE SLIDING SC PRN PRN Reason: Moderate Correctional Scale Insulin Human Lispro (Humalog) 0 units SC .BEDTIME SLIDING SC PRN PRN Reason: Bedtime Correctional Scale Loperamide HCl (Imodium) 2 mg PO PRN PRN PRN Reason: Diarrhea/Loose Stools Magnesium Hydroxide (Milk Of Magnesium) 30 ml PO DAILYPRN PRN PRN Reason: Constipation Last Admin: 07/15/18 09:21 Dose: 30 ml Ondansetron HCl (Zofran Odt) 4 mg PO Q6H PRN PRN Reason: Nausea/Vomiting Ondansetron HCl (Zofran) 4 mg IVP Q6H PRN PRN Reason: Nausea/Vomiting Pantoprazole Sodium (Protonix) 40 mg PO DAILY [facility] Last Admin: 07/15/18 08:03 Dose: 40 mg Senna (Senokot) 2 tab PO HSPRN PRN PRN Reason: Constipation Sodium Chloride (Flush - Normal Saline) 10 ml IVF PRN PRN PRN Reason: Saline Flush Tamsulosin HCl (Flomax) 0.4 mg PO DAILY [facility] Last Admin: 07/15/18 08:03 Dose: 0.4 mg Terazosin HCl (Hytrin) 10 mg PO HS [facility] Last Admin: 07/14/18 20:08 Dose: 10 mg
[2018-07-15] MEDS: Acetaminophen 325 MG TAB PO PRN (14:30)
[2018-07-15] MEDS: Terazosin HCl 5 MG CAP PO SCH (20:48)
[2018-07-15] MEDS: Atorvastatin Calcium 40 MG TAB PO SCH (20:49)
[2018-07-16] MEDS: Heparin 5,000 UNITS/ML VIAL SC SCH ×2 (08:46→20:19)
[2018-07-16] MEDS: Aspirin 325 MG TAB PO SCH (08:47)
[2018-07-16] MEDS: Tamsulosin HCl 0.4 MG CAP PO SCH (08:47)
[2018-07-16] MEDS: Cilostazol 100 MG TAB PO SCH (08:47)
[2018-07-16] MEDS: Alogliptin 6.25 MG TAB PO SCH (08:47)
[2018-07-16] MEDS: Folic Acid 1 MG TAB PO SCH (08:47)
[2018-07-16] MEDS: Cyanocobalamin (Vitamin B-12) 1,000 MCG TAB PO SCH (08:48)
[2018-07-16] MEDS: Milk Of Magnesia 30 ML UDCUP PO PRN (08:48)
--- NOTE | 2018-07-16 09:22 | PDOC.PN ---
- Subjective Encounter Start Date: 07/16/18 Encounter Start Time: 07:20 Patient seen and examined. No new complaints. No overnight events - Objective Resuscitation Status: Resuscitation Status DNR:Do Not Resuscitate MAR Reviewed: Yes Vital Signs & Weight: Vital Signs (12 hours) Temp Pulse Resp BP Pulse Ox 07/16/18 07:28 98.1 F 64 18 145/78 H 95 07/16/18 04:00 98.4 F 80 16 123/69 97 07/16/18 02:41 98.5 F 76 22 H 154/71 H 95 Weight Weight 173 lb 1.6 oz I&O: 07/15/18 07/16/18 07/17/18 06:59 06:59 06:59 Intake Total 1764 1050 120 Output Total 350 Balance 1414 1050 120 Result Diagrams: 07/14/18 08:23 07/15/18 07:42 Additional Labs: Accuchecks 07/16/18 07/15/18 07/15/18 05:28 20:43 17:18 POC Glucose 135 H 151 H 151 H 07/15/18 10:55 POC Glucose 147 H EKG Reviewed by me: Yes (nsr) Phys Exam - Physical Examination Constitutional: NAD HEENT: PERRLA, moist MMs, sclera anicteric Neck: no JVD, supple Respiratory: no wheezing, no rales, no rhonchi Cardiovascular: RRR, no significant murmur, no rub Gastrointestinal: soft, non-tender, no distention, positive bowel sounds Musculoskeletal: no edema, pulses present Neurological: non-focal, normal sensation Lymphatic: no nodes Psychiatric: normal affect Deviation from normal: hard of hearing Skin: no rash, normal turgor Dx/Plan (1) Acute kidney failure Status: Acute Comment: (2) Elevated troponin Code(s): R74.8 - ABNORMAL LEVELS OF OTHER SERUM ENZYMES Status: Acute Comment: due to high total CK (3) Physical deconditioning Code(s): R53.81 - OTHER MALAISE Status: Acute (4) Rhabdomyolysis Code(s): M62.82 - RHABDOMYOLYSIS Status: Acute (5) Stroke-like symptoms Code(s): R29.90 - UNSPECIFIED SYMPTOMS AND SIGNS INVOLVING THE NERVOUS SYSTEM Status: Ruled-out Comment: ruled out stroke (6) Diabetes type 2, controlled Code(s): E11.9 - TYPE 2 DIABETES MELLITUS WITHOUT COMPLICATIONS Status: Chronic (7) Dyslipidemia Code(s): E78.5 - HYPERLIPIDEMIA, UNSPECIFIED Status: Chronic (8) Hypertension Code(s): I10 - ESSENTIAL (PRIMARY) HYPERTENSION Status: Chronic (9) Macrocytic anemia Code(s): D53.9 - NUTRITIONAL ANEMIA, UNSPECIFIED Status: Chronic (10) PAD (peripheral artery disease) Code(s): I73.9 - PERIPHERAL VASCULAR DISEASE, UNSPECIFIED Status: Chronic (11) Hyperkalemia Code(s): E87.5 - HYPERKALEMIA Status: Resolved (12) Thrombocytopenia Code(s): D69.6 - THROMBOCYTOPENIA, UNSPECIFIED Status: Acute (13) UTI (urinary tract infection) Status: Acute - Plan cont current plan of care, continue antibiotics, PT/OT, social media analyst * continue levaquin * medication reviewed as below * symptomatic treatment * will need placement. Review of Systems - Review of Systems Eyes: negative: Pain, Vision Change, Conjunctivae Inflammation, Eyelid Inflammation, Redness, Other ENT: negative: Ear Pain, Ear Discharge, Nose Pain, Nose Discharge, Nose Congestion, Mouth Pain, Mouth Swelling, Throat Pain, Throat Swelling, Other Respiratory: negative: Cough, Dry, Shortness of Breath, Hemoptysis, SOB with Excertion, Pleuritic Pain, Sputum, Wheezing Cardiovascular: negative: chest pain, palpitations, orthopnea, paroxysmal nocturnal dyspnea, edema, light headedness, other Gastrointestinal: negative: Nausea, Vomiting, Abdominal Pain, Diarrhea, Constipation, Melena, Hematochezia, Other Genitourinary: negative: Dysuria, Frequency, Incontinence, Hematuria, Retention , Other Musculoskeletal: negative: Neck Pain, Shoulder Pain, Arm Pain, Back Pain, Hand Pain, Leg Pain, Foot Pain, Other Skin: negative: Rash, Lesions, Cody, Bruising, Other - Medications/Allergies Allergies/Adverse Reactions: Allergies Allergy/AdvReac Type Severity Reaction Status Date / Time penicillin G Allergy Rash Verified 07/12/18 14:49 Medications: Current Medications Acetaminophen (Tylenol) 650 mg PO Q4H PRN PRN Reason: Headache/Fever or Pain Last Admin: 07/15/18 14:30 Dose: 650 mg Hydrocodone Bitart/Acetaminophen ([place] 5/325) 1 tab PO Q4H PRN PRN Reason: Moderate Pain (4-6) Last Admin: 07/15/18 04:02 Dose: 1 tab Al Hydroxide/Mg Hydroxide (Maalox) 30 ml PO Q6H PRN PRN Reason: Heartburn or Indigestion Alogliptin Benzoate (Alogliptin) 12.5 mg PO DAILY [facility] Last Admin: 07/15/18 08:31 Dose: 12.5 mg Aspirin (Aspirin) 325 mg PO DAILY [facility] Last Admin: 07/15/18 08:04 Dose: 325 mg Atorvastatin Calcium (Lipitor) 40 mg PO HS [facility] Last Admin: 07/15/18 20:49 Dose: 40 mg Cholecalciferol (Vitamin D3) 5,000 units PO DAILY [facility] Last Admin: 07/15/18 08:03 Dose: 5,000 units Cilostazol (Pletal) 100 mg PO DAILY [facility] Last Admin: 07/15/18 08:04 Dose: 100 mg Cyanocobalamin (Vitamin B-12) 1,000 mcg PO DAILY [facility] Last Admin: 07/15/18 08:04 Dose: 1,000 mcg Dextrose/Water (Dextrose 50%) 25 gm SLOW IVP PRN PRN PRN Reason: Hypoglycemia Folic Acid (Folvite) 1 mg PO DAILY [facility] Last Admin: 07/15/18 08:03 Dose: 1 mg Glucagon (Glucagon) 1 mg IM PRN PRN PRN Reason: Hypoglycemia Heparin Sodium (Porcine) (Heparin) 5,000 units SC BID [facility] Last Admin: 07/15/18 20:52 Dose: 5,000 units Dextrose/Water (D5w) 1,000 mls @ 0 mls/hr IV .Q0M PRN PRN Reason: Hypoglycemia Levofloxacin 500 mg/ Device 100 mls @ 100 mls/hr IVPB Q24HR@0800 [facility] Last Admin: 07/15/18 08:03 Dose: 100 mls Insulin Human Lispro (Humalog) 0 units SC .MODERATE SLIDING SC PRN PRN Reason: Moderate Correctional Scale Insulin Human Lispro (Humalog) 0 units SC .BEDTIME SLIDING SC PRN PRN Reason: Bedtime Correctional Scale Loperamide HCl (Imodium) 2 mg PO PRN PRN PRN Reason: Diarrhea/Loose Stools Magnesium Hydroxide (Milk Of Magnesium) 30 ml PO DAILYPRN PRN PRN Reason: Constipation Last Admin: 07/15/18 09:21 Dose: 30 ml Ondansetron HCl (Zofran Odt) 4 mg PO Q6H PRN PRN Reason: Nausea/Vomiting Ondansetron HCl (Zofran) 4 mg IVP Q6H PRN PRN Reason: Nausea/Vomiting Pantoprazole Sodium (Protonix) 40 mg PO DAILY [facility] Last Admin: 07/15/18 08:03 Dose: 40 mg Senna (Senokot) 2 tab PO HSPRN PRN PRN Reason: Constipation Sodium Chloride (Flush - Normal Saline) 10 ml IVF PRN PRN PRN Reason: Saline Flush Tamsulosin HCl (Flomax) 0.4 mg PO DAILY [facility] Last Admin: 07/15/18 08:03 Dose: 0.4 mg Terazosin HCl (Hytrin) 10 mg PO HS [facility] Last Admin: 07/15/18 20:48 Dose: 10 mg
[2018-07-16] MEDS: HumaLOG 300 UNITS/3 ML VIAL SC PRN ×2 (11:20→17:25)
[2018-07-16] MEDS: Atorvastatin Calcium 40 MG TAB PO SCH (20:20)
[2018-07-16] MEDS: Terazosin HCl 5 MG CAP PO SCH (20:20)
[2018-07-16] MEDS: Acetaminophen 325 MG TAB PO PRN (20:21)
[2018-07-17 07:59] LABS: #Eosinphils 0.2 thou/uL (0.0-0.7); #Lymphocytes 1.1 thou/uL (1.20-3.40); #Monocytes 0.5 thou/uL (0.11-0.59); #Neutrophils 3.2 thou/uL (1.40-6.50); %Basophils 0.5 % (0.0-1.0); %Lymphocytes 21.7 % (21.0-51.0); %Monocytes 9.3 % (0.0-10.0); %Neutrophils 64.6 % (42.0-75.0); Hemoglobin 9.7 g/dL (14.0-18.0); Mean Corpuscular HGB CONC 34.5 g/dL (32.0-36.0); Mean Corpuscular Hemoglobin 33.9 pg (27.0-31.0); Mean Corpuscular Volume 98.1 fL (78.0-98.0); Mean Platelet Volume 7.9 fL (7.4-10.4); Platelet Count 132 thou/uL (130-400); RBC Distribution Width 13.7 % (11.5-14.5); Red Blood Cell (RBC) Count 2.87 mill/uL (4.70-6.10); White Blood Cell (WBC) Count 4.9 thou/uL (4.8-10.8)
[2018-07-17 08:21] LABS: Anion Gap 17 mmol/L (10-20); BUN (Urea Nitrogen) 27 mg/dL (8.4-25.7); CK (CPK) 242 U/L (30-200); Calc. Creatinine Clearance 38 mL/min (70-130); Calcium 9.2 mg/dL (7.8-10.44); Carbon Dioxide 18 mmol/L (23-31); Chloride 105 mmol/L (98-107); Estimated GFR-MDRD 45; Glucose 125 mg/dL (83-110); Potassium 4.2 mmol/L (3.5-5.1); Sodium 136 mmol/L (136-145)
[2018-07-17] MEDS: Alogliptin 6.25 MG TAB PO SCH (08:38)
[2018-07-17] MEDS: Aspirin 325 MG TAB PO SCH (08:39)
[2018-07-17] MEDS: Heparin 5,000 UNITS/ML VIAL SC SCH (08:40)
[2018-07-17] MEDS: Cilostazol 100 MG TAB PO SCH (08:40)
[2018-07-17] MEDS: Folic Acid 1 MG TAB PO SCH (08:40)
[2018-07-17] MEDS: Cyanocobalamin (Vitamin B-12) 1,000 MCG TAB PO SCH (08:40)
[2018-07-17] MEDS: Tamsulosin HCl 0.4 MG CAP PO SCH (08:40)
--- NOTE | 2018-07-17 10:35 | PDOC.PN ---
- Subjective Encounter Start Date: 07/17/18 Encounter Start Time: 07:20 Patient seen and examined. No new complaints. No overnight events - Objective Resuscitation Status: Resuscitation Status DNR:Do Not Resuscitate MAR Reviewed: Yes Vital Signs & Weight: Vital Signs (12 hours) Temp Pulse Resp BP Pulse Ox 07/17/18 07:46 98.0 F 51 L 18 140/69 96 07/17/18 07:20 98.3 F 57 L 16 93 L 07/17/18 03:48 98.3 F 57 L 16 140/66 94 L 07/17/18 00:00 98.6 F 62 16 133/64 93 L Weight Weight 173 lb 1.6 oz I&O: 07/16/18 07/17/18 07/18/18 06:59 06:59 06:59 Intake Total 1050 480 300 Output Total 225 Balance 1050 255 300 Result Diagrams: 07/17/18 07:43 07/17/18 07:43 Additional Labs: Accuchecks 07/17/18 07/17/18 07/16/18 10:15 05:44 20:33 POC Glucose 159 H 128 H 199 H 07/16/18 07/16/18 16:41 10:34 POC Glucose 158 H 157 H EKG Reviewed by me: Yes (nsr) Phys Exam - Physical Examination Constitutional: NAD HEENT: PERRLA, moist MMs, sclera anicteric Neck: no JVD, supple Respiratory: no wheezing, no rales, no rhonchi Cardiovascular: RRR, no significant murmur, no rub Gastrointestinal: soft, non-tender, no distention, positive bowel sounds Musculoskeletal: no edema, pulses present Neurological: non-focal, normal sensation, moves all 4 limbs Lymphatic: no nodes Psychiatric: normal affect Skin: no rash, normal turgor Dx/Plan (1) Acute kidney failure Status: Resolved Comment: (2) Elevated troponin Code(s): R74.8 - ABNORMAL LEVELS OF OTHER SERUM ENZYMES Status: Acute Comment: due to high total CK (3) Physical deconditioning Code(s): R53.81 - OTHER MALAISE Status: Acute (4) Rhabdomyolysis Code(s): M62.82 - RHABDOMYOLYSIS Status: Resolved (5) Stroke-like symptoms Code(s): R29.90 - UNSPECIFIED SYMPTOMS AND SIGNS INVOLVING THE NERVOUS SYSTEM Status: Ruled-out Comment: ruled out stroke (6) Diabetes type 2, controlled Code(s): E11.9 - TYPE 2 DIABETES MELLITUS WITHOUT COMPLICATIONS Status: Chronic (7) Dyslipidemia Code(s): E78.5 - HYPERLIPIDEMIA, UNSPECIFIED Status: Chronic (8) Hypertension Code(s): I10 - ESSENTIAL (PRIMARY) HYPERTENSION Status: Chronic (9) Macrocytic anemia Code(s): D53.9 - NUTRITIONAL ANEMIA, UNSPECIFIED Status: Chronic (10) PAD (peripheral artery disease) Code(s): I73.9 - PERIPHERAL VASCULAR DISEASE, UNSPECIFIED Status: Chronic (11) Hyperkalemia Code(s): E87.5 - HYPERKALEMIA Status: Resolved (12) Thrombocytopenia Code(s): D69.6 - THROMBOCYTOPENIA, UNSPECIFIED Status: Acute (13) UTI (urinary tract infection) Status: Acute - Plan cont current plan of care, continue antibiotics, PT/OT, protective services social worker * DC tele * transfer to medical * i think he needs placement, at home he is at fall risk and recurrent admission risk * medication reviewed as below * symptomatic treatment. Review of Systems - Review of Systems Eyes: negative: Pain, Vision Change, Conjunctivae Inflammation, Eyelid Inflammation, Redness, Other ENT: negative: Ear Pain, Ear Discharge, Nose Pain, Nose Discharge, Nose Congestion, Mouth Pain, Mouth Swelling, Throat Pain, Throat Swelling, Other Respiratory: negative: Cough, Dry, Shortness of Breath, Hemoptysis, SOB with Excertion, Pleuritic Pain, Sputum, Wheezing Cardiovascular: negative: chest pain, palpitations, orthopnea, paroxysmal nocturnal dyspnea, edema, light headedness, other Gastrointestinal: negative: Nausea, Vomiting, Abdominal Pain, Diarrhea, Constipation, Melena, Hematochezia, Other Genitourinary: negative: Dysuria, Frequency, Incontinence, Hematuria, Retention , Other Musculoskeletal: negative: Neck Pain, Shoulder Pain, Arm Pain, Back Pain, Hand Pain, Leg Pain, Foot Pain, Other - Medications/Allergies Allergies/Adverse Reactions: Allergies Allergy/AdvReac Type Severity Reaction Status Date / Time penicillin G Allergy Rash Verified 07/12/18 14:49 Medications: Current Medications Acetaminophen (Tylenol) 650 mg PO Q4H PRN PRN Reason: Headache/Fever or Pain Last Admin: 07/16/18 20:21 Dose: 650 mg Hydrocodone Bitart/Acetaminophen ([place] 5/325) 1 tab PO Q4H PRN PRN Reason: Moderate Pain (4-6) Last Admin: 07/15/18 04:02 Dose: 1 tab Al Hydroxide/Mg Hydroxide (Maalox) 30 ml PO Q6H PRN PRN Reason: Heartburn or Indigestion Alogliptin Benzoate (Alogliptin) 12.5 mg PO DAILY [facility] Last Admin: 07/17/18 08:38 Dose: 12.5 mg Aspirin (Aspirin) 325 mg PO DAILY [facility] Last Admin: 07/17/18 08:39 Dose: 325 mg Atorvastatin Calcium (Lipitor) 40 mg PO HS [facility] Last Admin: 07/16/18 20:20 Dose: 40 mg Cholecalciferol (Vitamin D3) 5,000 units PO DAILY [facility] Last Admin: 07/17/18 08:39 Dose: 5,000 units Cilostazol (Pletal) 100 mg PO DAILY [facility] Last Admin: 07/17/18 08:40 Dose: 100 mg Cyanocobalamin (Vitamin B-12) 1,000 mcg PO DAILY [facility] Last Admin: 07/17/18 08:40 Dose: 1,000 mcg Dextrose/Water (Dextrose 50%) 25 gm SLOW IVP PRN PRN PRN Reason: Hypoglycemia Folic Acid (Folvite) 1 mg PO DAILY [facility] Last Admin: 07/17/18 08:40 Dose: 1 mg Glucagon (Glucagon) 1 mg IM PRN PRN PRN Reason: Hypoglycemia Heparin Sodium (Porcine) (Heparin) 5,000 units SC BID [facility] Last Admin: 07/17/18 08:40 Dose: 5,000 units Dextrose/Water (D5w) 1,000 mls @ 0 mls/hr IV .Q0M PRN PRN Reason: Hypoglycemia Levofloxacin 500 mg/ Device 100 mls @ 100 mls/hr IVPB Q24HR@0800 [facility] Last Admin: 07/17/18 08:32 Dose: 100 mls Insulin Human Lispro (Humalog) 0 units SC .MODERATE SLIDING SC PRN PRN Reason: Moderate Correctional Scale Last Admin: 07/16/18 17:25 Dose: 2 unit Insulin Human Lispro (Humalog) 0 units SC .BEDTIME SLIDING SC PRN PRN Reason: Bedtime Correctional Scale Loperamide HCl (Imodium) 2 mg PO PRN PRN PRN Reason: Diarrhea/Loose Stools Magnesium Hydroxide (Milk Of Magnesium) 30 ml PO DAILYPRN PRN PRN Reason: Constipation Last Admin: 07/16/18 08:48 Dose: 30 ml Ondansetron HCl (Zofran Odt) 4 mg PO Q6H PRN PRN Reason: Nausea/Vomiting Last Admin: 07/16/18 17:25 Dose: 4 mg Ondansetron HCl (Zofran) 4 mg IVP Q6H PRN PRN Reason: Nausea/Vomiting Pantoprazole Sodium (Protonix) 40 mg PO DAILY [facility] Last Admin: 07/17/18 08:40 Dose: 40 mg Senna (Senokot) 2 tab PO HSPRN PRN PRN Reason: Constipation Last Admin: 07/16/18 20:22 Dose: 2 tab Sodium Chloride (Flush - Normal Saline) 10 ml IVF PRN PRN PRN Reason: Saline Flush Tamsulosin HCl (Flomax) 0.4 mg PO DAILY [facility] Last Admin: 07/17/18 08:40 Dose: 0.4 mg Terazosin HCl (Hytrin) 10 mg PO [facility] Last Admin: 07/16/18 20:20 Dose: 10 mg
[2018-07-17] MEDS: HumaLOG 300 UNITS/3 ML VIAL SC PRN (10:43)
--- NOTE | 2018-07-17 11:38 | DIS ---
PRIMARY CARE PHYSICIAN: Dr. Sami Mckeon DATE OF ADMISSION: 07/12/2018 DATE OF DISCHARGE: 07/17/2018 DISCHARGE DISPOSITION: [facility]. PRIMARY DISCHARGE DIAGNOSES: 1. Acute kidney failure, improved. 2. Hyperkalemia, corrected. 3. Rhabdomyolysis, improved. 4. Physical deconditioning. 5. Elevated troponin due to rhabdomyolysis. 6. Urinary tract infection due to Pseudomonas. SECONDARY DISCHARGE DIAGNOSES: Diabetes type 2, dyslipidemia, hypertension, macrocytic anemia, perip heral arterial disease. Benign prostatic hypertrophy. PRIMARY PROCEDURE/OPERATION: None. RADIOLOGICAL INVESTIGATION: CT brain negative, CT angiography negative. MRI brain did not show any stroke. Echocardiography unremarkable. SIGNIFICANT LABORATORY DATA: Hemoglobin 9.7. WBC 4.9, platelet 132. INR 1.0. Sodium 136, creatini ne 1.46, creatinine kinase 242. Urinalysis unremarkable. Urine culture grew Pseudomonas. DISCHARGE MEDICATIONS: Aspirin 81 mg p.o. daily, vitamin D 3-5000 units p.o. daily, Pletal 100 mg p. o. daily, vitamin B12 2500 mcg, Proscar 5 mg p.o. at bedtime, metformin XR 1000 mg p.o. b.i.d., prava statin 20 mg p.o. at bedtime, Lyrica 150 mg p.o. at bedtime, ramipril 5 mg p.o. daily, Restasis ophth almic drops as needed, Januvia 50 mg p.o. daily, terazosin 10 mg p.o. at bedtime, folic acid 1 mg palomo ly, Levaquin 500 mg p.o. daily, Flomax 0.4 mg p.o. daily. CONTRAINDICATIONS: None. CODE STATUS: DNR. INPATIENT CONSULTANTS: Dr. Kimberly Guevara was consulted. TEST RESULTS PENDING ON DISCHARGE: None. ALLERGIES: PENICILLIN. DISCHARGE PLAN: Post hospital, the patient is discharged to [facility]. Subsequently, the pat ient will follow up with primary care physician. HOSPITAL COURSE: An 87-year-old male who had a fall at home and he remained on the floor for a perio d of time. He was brought to ER for stroke alert. In the emergency room, he had CT [place] and CT angiography as well as CT brain which was negative for any stroke. We admitted to stroke ambreen or for stroke evaluation. We did MRI brain and echocardiography which was negative for any stroke. In this way, we have completely excluded stroke on admission. Neurology also evaluated this patient. On admission, he had acute kidney failure and rhabdomyolysis from fall for unknown period, that is wh y we treated him with IV fluid and with time, his creatinine improved to baseline as well as CK impro navin to normal. Because of elevated total CK he had elevated troponin, but he did not have any acute coronary syndrome or any echocardiographic finding that can explain elevated troponin. This patient has frequent falls at home and he is hard of hearing as well as he is at fall risk and t hat is why he was not safe for going home by himself. We consulted telehealth case manager and we arranged a [facility] halfway. PHYSICAL EXAMINATION: This patient is at very high risk for recurrent falls at home situation, he ne eds 24 hour care. Paper work for discharge done. Discharge medication reconciliation done. The patient was seen and e xamined. Please see my progress note from today. Total time spent on discharge was 31 minutes.
[2018-07-17 11:41] VITALS: BP 126/63; TEMP 98.8
== END 2018-07-17 12:57 | DRG 557 ==
LOC: ERS 10:06 → 2SE 13:50
PROVIDERS: ADMIT Internal Medicine; ATTEND Internal Medicine
DX: M62.82 Rhabdomyolysis (principal); G92 Toxic encephalopathy; N17.9 Acute kidney failure, unspecified; N39.0 Urinary tract infection, site not specified; E87.1 Hypo-osmolality and hyponatremia; E11.9 Type 2 diabetes mellitus without complications; I25.2 Old myocardial infarction; I10 Essential (primary) hypertension; W06.XXXA Fall from bed, initial encounter; Z91.81 History of falling; Y92.019 Unspecified place in single-family (private) house as the place of occurrence of the external cause; N40.0 Benign prostatic hyperplasia without lower urinary tract symptoms; I25.10 Atherosclerotic heart disease of native coronary artery without angina pectoris; Z95.1 Presence of aortocoronary bypass graft; I73.9 Peripheral vascular disease, unspecified; Z87.891 Personal history of nicotine dependence; E78.5 Hyperlipidemia, unspecified; F03.90 Unspecified dementia, unspecified severity, without behavioral disturbance, psychotic disturbance, mood disturbance, and anxiety; E87.5 Hyperkalemia; B96.5 Pseudomonas (aeruginosa) (mallei) (pseudomallei) as the cause of diseases classified elsewhere; D53.9 Nutritional anemia, unspecified; Z66 Do not resuscitate; Z79.82 Long term (current) use of aspirin; R79.89 Other specified abnormal findings of blood chemistry; R47.1 Dysarthria and anarthria; Z79.84 Long term (current) use of oral hypoglycemic drugs; D69.6 Thrombocytopenia, unspecified; H91.90 Unspecified hearing loss, unspecified ear
CPT/HCPCS: 36415; 36416; 70450; 70496; 70498; 70551; 80048; 80053; 80061; 81003; 81015; 82550; 82553; 83090; 84484; 85025; 85610; 85730; 87077; 87086; 87186; 93005; 93306; 96360; 96361; G8978-GP-CL; G8979-GP-CJ; G8987-GO-CL; G8988-GO-CJ; G8996-GN-CI; G8997-GN-CH; J1644; J1956; Q0162

== ENCOUNTER 2018-11-01 03:00 | Emergency (ER) | payer MEDICARE, BC ==
[2018-11-01 04:50] LABS: Bilirubin Moderate (Negative); Blood, Urine Large (Negative); Clarity TURBID (Clear); Glucose, Urine (Dipstick) Negative (Negative); Leukocyte Large (Negative); Nitrite Positive (Negative); Protein, Urine (Dipstick) > or equal to 300 mg/dL (Neg-Trace); Specific Gravity, Urine 1.019 (1.002-1.036)
[2018-11-01 04:54] LABS: Bacteria/HPF None Seen HPF (None Seen); Squamous Epithelial 21-50 HPF (0-3)
[2018-11-01 05:07] LABS: Pathc Cast-AUWi Flag 104.61 (0-2.49); Yeast-AUWi Flag 1161.4 (0-25.0)
[2018-11-01 05:08] LABS: RBC/HPF GREATER THAN 50-TNTC HPF (0-3)
[2018-11-01 05:09] LABS: Hyaline Casts/LPF NONE SEEN LPF (0-3 Hyaline); Other Casts/LPF None Seen LPF (0-3 Hyaline); Renal Epithelial None Seen HPF (0-3); Transitional Epithelial NONE SEEN HPF (0-3); Yeast-All Forms None Seen HPF (None Seen)
== END 2018-11-01 06:01 | disposition home or self-care (01) ==
LOC: ERS 03:00
DX: N39.0 Urinary tract infection, site not specified (principal); E11.9 Type 2 diabetes mellitus without complications; I10 Essential (primary) hypertension; I25.2 Old myocardial infarction; Z87.891 Personal history of nicotine dependence; Z79.899 Other long term (current) drug therapy; Z79.84 Long term (current) use of oral hypoglycemic drugs
CPT/HCPCS: 51703; 81003; 81015; 87086

== ENCOUNTER 2018-11-03 10:52 | Inpatient (IN) | payer MEDICARE, BC ==
[2018-11-03] MEDS ORDERED: Acetaminophen 650 MG Suppository ONE (10:58)
[2018-11-03 11:29] LABS: Bilirubin Small (Negative); Blood, Urine Large (Negative); Clarity TURBID (Clear); Glucose, Urine (Dipstick) Negative (Negative); Leukocyte Large (Negative); Nitrite Negative (Negative); Protein, Urine (Dipstick) 100 mg/dL (Neg-Trace); Specific Gravity, Urine 1.021 (1.002-1.036); Urobilinogen 0.2 mg/dL (0.2-1.0)
[2018-11-03 11:31] LABS: Hemoglobin 9.8 g/dL (14.0-18.0); Mean Corpuscular HGB CONC 33.9 g/dL (32.0-36.0); Mean Corpuscular Hemoglobin 32.8 pg (27.0-31.0); Mean Corpuscular Volume 96.8 fL (78.0-98.0); Mean Platelet Volume 7.7 fL (7.4-10.4); Platelet Count 214 thou/uL (130-400); RBC Distribution Width 13.9 % (11.5-14.5); Red Blood Cell (RBC) Count 2.99 mill/uL (4.70-6.10); White Blood Cell (WBC) Count 10.5 thou/uL (4.8-10.8)
[2018-11-03 11:33] LABS: Pathc Cast-AUWi Flag 26.02 (0-2.49); Yeast-AUWi Flag 724.4 (0-25.0)
--- NOTE | 2018-11-03 11:36 | RAD ---
CHEST 1 VIEW: Date: 11/03/18 HISTORY: Fever. COMPARISON: Chest radiograph dated 07/24/18. FINDINGS: There are bibasilar air space opacities, worse in the left lower lobe. No pneumothorax. No effusion. Old right-sided rib fractures. Old right mid clavicular fracture. Rotator cuff arthropathy bilaterally. IMPRESSION: Bibasilar air space opacities, concern for multifocal pneumonia. Follow-up after treatment recommende d. POS: TPC
[2018-11-03 11:39] LABS: RBC/HPF 21-50 HPF (0-3)
[2018-11-03 11:40] LABS: Bacteria/HPF 2+ HPF (None Seen); Hyaline Casts/LPF 4-6 HYALINE CAST LPF (0-3 Hyaline); Manual Microscopic Reviewed? No Path Casts Seen; Renal Epithelial None Seen HPF (0-3); Yeast-All Forms None Seen HPF (None Seen)
[2018-11-03 11:45] LABS: INR-International Normal Ratio 1.2; PTT 31.5 SEC (22.9-36.1); Prothrombin Time 15.5 SEC (12.0-14.7)
[2018-11-03 11:51] LABS: ALT (SGPT) 25 U/L (8-55); AST (SGOT) 20 U/L (5-34); Albumin 3.5 g/dL (3.4-4.8); Alkaline Phosphatase 72 U/L (40-150); Anion Gap 18 mmol/L (10-20); BUN (Urea Nitrogen) 38 mg/dL (8.4-25.7); Bilirubin, Total 0.6 mg/dL (0.2-1.2); CK (CPK) 34 U/L (30-200); Calc. Creatinine Clearance 0 mL/min (70-130); Calcium 8.6 mg/dL (7.8-10.44); Carbon Dioxide 18 mmol/L (23-31); Chloride 102 mmol/L (98-107); Estimated GFR-MDRD 35; Globulin 3.4 g/dL (2.4-3.5); Glucose 233 mg/dL (83-110); Lipase 4 U/L (8-78); Potassium 4.2 mmol/L (3.5-5.1); Protein, Total 6.9 g/dL (5.8-8.1); Sodium 134 mmol/L (136-145)
[2018-11-03 11:54] LABS: Band 46 % (5-11); Lymphocytes 10 % (21-51); MDiff Complete? YES; Monocytes 6 % (0-10); Neutrophil 36 % (42-75); PLT Morphology Comment Appears Adequate; Polychromasia SLIGHT = 2-3 cells (100X) (0-2/hpf); Reactive Lymphocytes 2 % (0-10); Reflex for Review?? YES
[2018-11-03 12:11] LABS: CKMB 1.2 ng/mL (0-6.6)
[2018-11-03] MEDS ORDERED: Norepinephrine 8 MG/0.9% NS 250 ML ONE (13:01)
--- NOTE | 2018-11-03 13:18 | RAD ---
PORTABLE CHEST: Indications: Sepsis. Comparison: 11-03-18 FINDINGS/IMPRESSION: Mild cardiomegaly. Vascularity is prominent. Bilateral perihilar infiltrates, most prominent on the l eft. Central line is in place and tip overlies the SVC. No significant change from yesterday. POS: TPC
--- NOTE | 2018-11-03 14:14 | CT ---
ABDOMEN CT WITHOUT CONTRAST PELVIC CT WITHOUT CONTRAST: Date: 11/03/18 HISTORY: Altered mental status. Emesis. Fever. COMPARISON: None. TECHNIQUE: Abdomen and pelvis CT are performed without IV or oral contrast. Coronal reformatted images are submi tted for interpretation. FINDINGS: CT ABDOMEN: Examination limited by motion. Consolidation in both lower lobes may be due to atelectasis, pneumonia, or aspiration. Heart is enlar ged. Coronary artery calcifications are identified. No significant pericardial fluid. There is athero sclerosis in the visualized descending thoracic and abdominal aorta. Mildly distended gallbladder. Consider right upper quadrant ultrasound for further detail. Limited evaluation of the solid organs due to lack of IV contrast. Grossly, no solid organ abnormalit y. No gastrohepatic, retrocrural, or periportal lymphadenopathy. Limited evaluation of the alimentary canal due to lack of oral contrast. Small hiatal hernia is noted . No evidence of bowel obstruction. Ileocecal junction is normal. Scattered fecal material in a nondi stended, nondilated colon. Bilateral vascular calcifications are noted in the renal pelvises. Bilaterally, no hydronephrosis, ne phrolithiasis, or perinephric fat stranding. Bilateral ureters have normal caliber. No hydroureter, p eriureteral fat stranding, or ureterolithiasis. Appendix is not appreciated. No inflammation at the cecal apex. CT PELVIS: Markedly enlarged prostate gland. There is evidence of a Denton catheter within a decompressed urinary bladder. Bladder wall mucosa is prominent. Correlate clinically. No pelvic mass, lymphadenopathy, fr ee air, or free fluid. No lytic or blastic lesions in the osseous structures. There is mild bone demineralization. Mild righ tward curvature of the lumbar spine. IMPRESSION: 1. Mildly distended gallbladder. Gallbladder ultrasound if clinically warranted. 2. Opacification of both lower lobes may be due to atelectasis, pneumonia, or aspiration. 3. No evidence of obstructive uropathy. 4. Mildly prominent urinary bladder wall mucosa. Correlate clinically with cystoscopy. POS: ALEJANDRA
[2018-11-03] MEDS ORDERED: Acetaminophen 325 MG Suppository PR PRN (14:41)
[2018-11-03] MEDS ORDERED: Bisacodyl 10 MG SUPP PR PRN (14:41)
[2018-11-03] MEDS ORDERED: Norepinephrine 8 MG/0.9% NS 250 ML IVPB PRN (14:41)
[2018-11-03] MEDS ORDERED: SYSTANE 3.5 GM TUBE EA EYE PRN (14:41)
[2018-11-03] MEDS ORDERED: Ondansetron PF 4 MG/2 ML Vial IVP PRN (14:45)
[2018-11-03] MEDS ORDERED: Dextrose 50% Abboject 50 ML SYRINGE SLOW IVP PRN (14:45)
[2018-11-03] MEDS ORDERED: Ondansetron ODT 4 MG TAB PO PRN (14:45)
[2018-11-03] MEDS ORDERED: Sodium Bicarbonate 50 MEQ in Dextrose 5 %-0.45 % NaCl 1,000 ML IV SCH (14:45)
[2018-11-03] MEDS ORDERED: Senokot S 8.6-50 MG TAB PO PRN (14:45)
[2018-11-03] MEDS ORDERED: Dextrose 5% in Water 1,000 ML IV PRN (14:45)
[2018-11-03] MEDS ORDERED: Aztreonam 1 GM in Sodium Chloride 0.9% 100 ML IVPB SCH (15:00)
--- NOTE | 2018-11-03 15:00 | HP ---
PRIMARY CARE PHYSICIAN: Sami Mckeon MD. CODE STATUS: Do not resuscitate, verified with caregivers at the bedside. Surrogate decision maker is Yuki, who is a close friend. Contact #. CHIEF COMPLAINT: Altered mentation. HISTORY OF PRESENT ILLNESS: The patient is an 87-year-old male with urinary retention with indwelling Denton catheter, hypertension, and diabetes mellitus type 2, was brought in for altered mentation. History obtained from the friend at the bedside. No information obtained from the patient due to current cognitive status. The patient was found to have altered mentation according to the caregiver. He had one episode of vomiting this morning. It is unclear whether he aspirated during this vomiting episode. His temperature by EMS was 101. According to the caregiver, over the last 3 to 4 days, the patient has been having altered mentation. No fall or chest pain reported. In the emergency room, his initial vital signs showed temperature 101 rectally, respirations 26, pulse rate of 113 with a blood pressure 115/59 with O2 saturation 97% on room air. His heart rate by EMS was 130. He was found to have elevated lactic acid. A central line was placed. He is currently on Levophed. PAST MEDICAL HISTORY: 1. Diabetes mellitus type 2. 2. Hypertension. 3. Benign prostatic hypertrophy. 4. UTI with Pseudomonas in July of this year. 5. Hyperlipidemia. 6. Peripheral vascular disease. 7. Coronary artery disease. PAST SURGICAL HISTORY: 1. Appendectomy. 2. Left knee replacement. 3. Coronary artery bypass grafting. ALLERGIES: THE PATIENT IS ALLERGIC TO PENICILLIN. CURRENT HOME MEDICATIONS: Family to provide accurate list of medications. SOCIAL HISTORY: The patient currently lives at home by himself. He has a talent development analyst for 24 hours. He is a former smoker. No alcohol or drug use reported. He ambulates with the help of a walker. FAMILY HISTORY: Negative for premature coronary artery disease. REVIEW OF SYSTEMS: Cannot be obtained from the patient due to current cognitive status. PHYSICAL EXAMINATION: VITAL SIGNS: As discussed above. GENERAL: An 87-year-old male with altered mentation, currently on Levophed drip. HEENT: Head atraumatic, normocephalic. Dry mucous membranes. No oral lesion. No neck stiffness. NECK: Supple. No JVD appreciated. No carotid bruit. LUNGS: Showed scattered rales with rhonchi at bases. No wheezing appreciated. No accessory muscle use. HEART: S1, S2 present. Tachycardic. No rubs or gallops. ABDOMEN: Soft. Bowel sounds present. EXTREMITIES: No edema or calf tenderness. NEUROLOGIC: The patient is spontaneously moving all 4 extremities. He follows commands to some extent. PSYCHIATRIC: As discussed above. LYMPH NODES: No palpable lymph nodes in the neck. PERIPHERAL VASCULAR: Radial pulses palpable bilaterally. Low volume. SKIN: Warm and dry. LYMPH NODE: No palpable lymph nodes in the neck. LABORATORY DATA: Echocardiogram in June of this year showed ejection fraction 50% to 55% with diastolic dysfunction. CBC showed WBC 10.5 with hemoglobin 9.8, hematocrit 29, platelet count of 214, 46% bandemia. PT of 15.5, INR 1.2. Sodium 134, potassium 4.2, chloride 102, bicarb 18, BUN 38, creatinine 1.83, and glucose of 233. Lactic acid 5.4. Troponin of 0.106 with normal CK-MB. BNP 439. Cortisol level was 31.6. Urinalysis showed greater than 50 wbc's with 2+ bacteria. Influenza testing was negative. Chest x-ray by my review was negative for infiltrate. CT scan of the abdomen and pelvis, renal stone protocol by my review, showed possible infiltrate at bases. There was also some gallbladder distention. IMPRESSION: 1. Severe sepsis with acute organ dysfunction/septic shock secondary to catheter associated urinary tract infection, rule out gallbladder etiology. The patient also has pneumonia on the CT stone protocol, suspected aspiration. 2. Hypotension, requiring pressors. 3. Acute kidney injury on chronic kidney disease stage 3. 4. Metabolic acidosis/lactic acidosis. 5. Elevated troponins secondary to demand ischemia. 6. Hyponatremia. 7. Chronic diastolic heart failure, appears to be compensated. 8. Chronic anemia. 9. Diabetes mellitus type 2. 10. Hypertension. 11. Hyperlipidemia. 12. Coronary artery disease. 13. Benign prostatic hypertrophy. 14. Peripheral vascular disease. PLAN: The patient will be monitored in the CCU. We will continue Levophed with empiric antibiotics. We will start him on sodium bicarbonate drip. Insulin sliding scale. IV fluids. We will get right upper quadrant ultrasound due to gallbladder distention on the CT scan. We will repeat lactic acid. We will check strep pneumoniae and Legionella urinary antigen. Repeat labs in a.m. The patient will require 3 to 4 days for stabilization. Job ID: [id number] MTDD
[2018-11-03 15:34] LABS: Lactic Acid 3.3 mmol/L (0.5-2.2)
[2018-11-03 17:52] LABS: Troponin I 0.369 ng/mL (< 0.028)
[2018-11-03] MEDS ORDERED: Aspirin 300 MG Suppository PR SCH (21:00)
[2018-11-03] MEDS: Albuterol Sulfate 2.5 mg/3 ml Neb NEB SCH ×2 (23:15→23:23)
[2018-11-03] MEDS ORDERED: Albuterol Sulfate 2.5 mg/3 ml Neb ONE (23:20)
--- NOTE | 2018-11-03 23:41 | ULT ---
GALLBLADDER ULTRASOUND: 11/03/18 HISTORY: Sepsis. Distended gallbladder noted on CT study. Real time imaging of the right upper quadrant was performed. This shows a mildly distended gallbladde r. No gallbladder wall thickening is seen. There is some minimal sludge present. No stones. Common du ct is 3 mm. Liver parenchyma shows no focal abnormalities. Right kidney is not obstructed. Pancreas i s obscured. Technologist reports a negative ultrasound Jc's sign. IMPRESSION: Mildly distended gallbladder with minimal sludge. POS: CHLOÉH
[2018-11-04 05:40] LABS: Lactic Acid 1.9 mmol/L (0.5-2.2)
[2018-11-04 05:52] LABS: Troponin I 0.427 ng/mL (< 0.028)
[2018-11-04 05:55] LABS: ALT (SGPT) 18 U/L (8-55); AST (SGOT) 15 U/L (5-34); Albumin 2.8 g/dL (3.4-4.8); Alkaline Phosphatase 60 U/L (40-150); Anion Gap 13 mmol/L (10-20); BUN (Urea Nitrogen) 34 mg/dL (8.4-25.7); Bilirubin, Total 0.4 mg/dL (0.2-1.2); Calc. Creatinine Clearance 42 mL/min (70-130); Calcium 7.9 mg/dL (7.8-10.44); Carbon Dioxide 21 mmol/L (23-31); Chloride 106 mmol/L (98-107); Estimated GFR-MDRD 56; Globulin 2.8 g/dL (2.4-3.5); Glucose 161 mg/dL (83-110); Magnesium 1.5 mg/dL (1.6-2.6); Phosphorus 2.1 mg/dL (2.3-4.7); Potassium 3.8 mmol/L (3.5-5.1); Protein, Total 5.6 g/dL (5.8-8.1); Sodium 136 mmol/L (136-145)
[2018-11-04 07:10] LABS: Hemoglobin 7.8 g/dL (14.0-18.0); Mean Corpuscular HGB CONC 32.7 g/dL (32.0-36.0); Mean Corpuscular Hemoglobin 31.4 pg (27.0-31.0); Mean Corpuscular Volume 96.2 fL (78.0-98.0); Mean Platelet Volume 8.1 fL (7.4-10.4); Platelet Count 152 thou/uL (130-400); RBC Distribution Width 14.1 % (11.5-14.5); White Blood Cell (WBC) Count 10.5 thou/uL (4.8-10.8)
[2018-11-04 07:43] LABS: Band 30 % (5-11); Eosinophils 1 % (0-10); Lymphocytes 12 % (21-51); MDiff Complete? YES; Metamyelocyte 1 % (0-0); Monocytes 1 % (0-10); Neutrophil 55 % (42-75); Toxic Granulation SLIGHT; Vacuoles SLIGHT
[2018-11-04] MEDS ORDERED: Magnesium Sulfate 4 GM in Sodium Chloride 0.9% 250 ML 250 ML IVPB SCH (08:15)
[2018-11-04] MEDS ORDERED: Potassium Phosphate 15 MMOL in Sodium Chloride 0.9% 250 ML 250 ML IVPB SCH (08:15)
[2018-11-04] MEDS: Albuterol Sulfate 2.5 mg/3 ml Neb NEB SCH ×3 (08:42→20:24)
[2018-11-04] MEDS: Famotidine 20 MG TAB PO SCH ×3 (09:00→21:44)
[2018-11-04] MEDS: Heparin 5,000 UNITS/ML VIAL SC SCH ×3 (09:00→21:44)
[2018-11-04] MEDS ORDERED: Aspirin 300 MG Suppository PR SCH (09:00)
[2018-11-04] MEDS: Famotidine/PF 20 mg/2ml Vial SLOW IVP SCH ×3 (09:00→21:45)
--- NOTE | 2018-11-04 09:47 | CON ---
DATE OF CONSULTATION: HISTORY OF PRESENT ILLNESS: An 87-year-old gentleman, unable to given any history. He states he is deaf. I spoke to the senior care assistant, who states that Dr. Mckeon is his family doctor, who was recently in the hospital for UTI. He has 24-hour care at home. Some kind of family member lives in [place] and he is essentially a DNR. Apparently, yesterday someone found him confused and altered mental status. When they went to see him in the house, he was vomiting. His blood pressure was low with a systolic of 98, temperature 101. He was taken to the hospital. He is now in the ICU on a Levophed drip. IV fluids. Care takers tell me that he is pretty much housebound. He is not smoking at this time, but he may be a former smoker. The patient denies any coughing or wheezing. PAST MEDICAL HISTORY: Diabetes, hypertension, carotid artery disease, renal failure, encephalopathy, and dementia. PAST SURGICAL HISTORY: Left knee, appendix, bypass apparently. SOCIAL HISTORY: As noted. No alcohol. Previous tobacco, apparently quit 10 years ago as per the history. MEDICATIONS: His medication from home includes; 1. Januvia 50. 2. Metformin 1000 twice a day. 3. Terazosin 10 mg. 4. Flomax 0.4. 5. Lyrica. 6. Ramipril 5 mg. 7. Pravachol 20 mg. 8. Pletal. 9. He is now on vancomycin, norepinephrine, and Levaquin. ALLERGIES: PENICILLIN. PHYSICAL EXAMINATION: GENERAL: This morning, he is awake, alert, responsive, appears to be in no distress. He is off his Levophed. VITAL SIGNS: His blood pressure is 130/80, saturations 100%, respirations 24, temperature 98. CHEST: Bilateral rhonchi and crackles. CARDIAC: Normal S1 and S2. No gallops. ABDOMEN: Soft without any masses. LABORATORY DATA: He has big left shift, 55 segs, 30 lymphocytes. Lytes normal. Creatinine 1.2. DIAGNOSTIC DATA: X-ray shows no new bilateral pulmonary infiltrates. IMPRESSION: 1. Status post vomiting. 2. Possibly aspiration pneumonia. 3. Severe deconditioning for advanced age. 4. Dementia. 5. Renal failure. 6. Diabetes. 7. Nausea and vomiting, etiology unclear. Though the CAT scan of his abdomen was unremarkable, he had ultrasound done of his abdomen, which also showed mildly distended gallbladder with minimal sludge. X-ray, which was normal. bilateral infiltrates. 8. Hypotension, sepsis syndrome. PLAN: Continue antibiotics. Started steroids and neb treatment. He can be transferred out of the ICU. He is a DNR. This is a 45 minutes of critical care time. Job ID: [id number]
--- NOTE | 2018-11-04 10:32 | RAD ---
PORTABLE CHEST 1 VIEW: Date: 11/04/18 Time: 0513 hours HISTORY: Shortness of breath and pneumonia. FINDINGS/IMPRESSION: Comparison made with exam from previous day. Changes of median sternotomy are again seen. The heart size is stable. The aorta is tortuous. Right i nternal jugular central line remains in place. There is mild interval worsening of the lung infiltrat e since the previous study. Old right-sided rib and clavicular fractures are again seen. POS: ALEJANDRA
[2018-11-04] MEDS: Vancomycin HCl 1 GM in Premix Bag 1 BAG IVPB SCH (11:45)
[2018-11-04] MEDS: Hydrocortisone Sod Succ/PF 100 mg/2 ml Vial IVP SCH ×3 (11:46→23:48)
--- NOTE | 2018-11-04 14:51 | PDOC.PN ---
- Subjective Encounter Start Date: 11/04/18 Encounter Start Time: 09:30 Patient seen and examined for Sepsis. Off Levophed. Mentation improving. No new complaints. No overnight events - Objective Resuscitation Status - Order Detail: 11/03/18 14:45 Resuscitation Status Routine Resuscitation Status: DNAR: NO Resuscitation Discussed with: confirmed with DPOA MAR Reviewed: Yes Vital Signs & Weight: Vital Signs (12 hours) Temp Pulse Resp BP Pulse Ox 11/04/18 14:28 78 16 100 11/04/18 08:44 100 11/04/18 08:42 83 20 100 11/04/18 07:13 98.6 F 88 20 122/45 L 100 Weight Admit Weight 160 lb 0.889 oz Weight 160 lb 0.889 oz Result Diagrams: 11/04/18 07:00 11/04/18 03:30 Additional Labs: Accuchecks 11/04/18 11/04/18 05:00 01:57 POC Glucose 147 H 180 H Laboratory Tests 11/03/18 11/03/18 11/04/18 11:06 15:02 03:30 Lactic Acid 5.4 H* 3.3 H Phosphorus 2.1 L Magnesium 1.5 L Troponin I Cortisol 11/04/18 11/04/18 11/04/18 03:30 03:30 03:30 Lactic Acid 1.9 Phosphorus Magnesium Troponin I 0.427 H* Cortisol 10.30 Radiology Reviewed by me: Yes (CXR - worsening infiltrate) EKG Reviewed by me: Yes (Tele SR) Phys Exam - Physical Examination Constitutional: NAD Neck: no JVD Respiratory: no wheezing Rales and rhonchi ast bases, R > L, No accessory muscle use Cardiovascular: RRR, no rub no heaves/pulsations Gastrointestinal: soft, non-tender, no distention, positive bowel sounds Musculoskeletal: no edema Neurological: non-focal, normal sensation, moves all 4 limbs Psychiatric: normal affect, A&O x 3 Skin: no rash Dx/Plan - Plan DVT proph w/SCDs 1. Severe sepsis with acute organ dysfunction/septic shock secondary to catheter associated UTI/ Aspiration pneumonia. 2. Hypotension - pressors dced. 3. Acute kidney injury on chronic kidney disease stage 3. improving 4. Metabolic acidosis/lactic acidosis. 5. Elevated troponins secondary to demand ischemia. 6. Hyponatremia/Hypomagnessemia/Hypophosphatemia 7. Chronic diastolic heart failure. 8. Chronic anemia. 9. Diabetes mellitus type 2. 10. Hypertension. 11. Hyperlipidemia. 12. Coronary artery disease. 13. Benign prostatic hypertrophy. 14. Peripheral vascular disease. 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 On Stress dose steroids Cont to monitor Replace electrolytes Review of Systems - Review of Systems Cardiovascular: negative: chest pain, palpitations, orthopnea, paroxysmal nocturnal dyspnea, edema, light headedness, other Gastrointestinal: negative: Nausea, Vomiting, Abdominal Pain, Diarrhea, Constipation, Melena, Hematochezia, Other - Medications/Allergies Allergies/Adverse Reactions: Allergies Allergy/AdvReac Type Severity Reaction Status Date / Time penicillin G Allergy Rash Verified 07/12/18 14:49 Medications: Current Medications Acetaminophen (Tylenol Elixir) 650 mg PO Q6H PRN PRN Reason: Fever > 101 or Mild Pain Acetaminophen (Tylenol) 650 mg CA Q6H PRN PRN Reason: Fever > 101 or Mild Pain Albuterol Sulfate (Ventolin) 2.5 mg NEB [id number] [facility] Last Admin: 11/04/18 14:28 Dose: 2.5 mg Aspirin (Aspirin) 300 mg CA HS IRAIS Bisacodyl (Dulcolax) 10 mg CA DAILYPRN PRN PRN Reason: Constipation Dextrose/Water (Dextrose 50%) 25 gm SLOW IVP PRN PRN PRN Reason: Hypoglycemia Famotidine (Pepcid) 20 mg SLOW IVP Q12HR [facility] Famotidine (Pepcid) 20 mg PO BID [facility] Glucagon (Glucagon) 1 mg IM PRN PRN PRN Reason: Hypoglycemia Heparin Sodium (Porcine) (Heparin) 5,000 units SC BID [facility] Hydrocortisone Sodium Succinate (Solu-Cortef) 50 mg IVP Q6HR [facility] Stop: 11/11/18 12:01 Last Admin: 11/04/18 11:46 Dose: 50 mg Vancomycin HCl 1 gm/ Device 200 mls @ 200 mls/hr IVPB 1100 IRAIS Last Admin: 11/04/18 11:45 Dose: 200 mls Levofloxacin 750 mg/ Device 150 mls @ 100 mls/hr IVPB Q2D@1100 [facility] Norepinephrine Bitartrate (Levophed) 250 mls @ 0 mls/hr IVPB PRN PRN; Protocol PRN Reason: To maintain MAP > 65 Dextrose/Water (D5w) 1,000 mls @ 0 mls/hr IV .Q0M PRN PRN Reason: Hypoglycemia Sodium Chloride (Normal Saline 0.9%) 1,000 mls @ 100 mls/hr IV .Q10H IRAIS Insulin Human Regular (Humulin R) 0 units SC .MILD SLIDING SCALE PRN PRN Reason: Mild Correctional Scale Mineral Oil/White Petrolatum (Systane Nighttime Eye Ointment) 0 gm EA EYE PRN PRN PRN Reason: Dry Eyes Miscellaneous Medication (Pharmacy To Dose) 1 each IVPB ASDIR PRN PRN Reason: antibiotics based on renal fun Ondansetron HCl (Zofran Odt) 4 mg PO Q6H PRN PRN Reason: Nausea/Vomiting Ondansetron HCl (Zofran) 4 mg IVP Q6H PRN PRN Reason: Nausea/Vomiting Senna/Docusate Sodium (Senokot S) 2 tab PO BID PRN PRN Reason: Constipation Sodium Chloride (Flush - Normal Saline) 10 ml IVF PRN PRN PRN Reason: Saline Flush
[2018-11-04] MEDS: Sodium Chloride 0.9% 1,000 ML IV SCH ×2 (18:23→21:45)
[2018-11-04] MEDS ORDERED: Albuterol Sulfate 1.25 MG/3 ML NEB ONE (20:17)
[2018-11-05] MEDS: Albuterol Sulfate 2.5 mg/3 ml Neb NEB SCH ×5 (00:27→19:36)
[2018-11-05] MEDS ORDERED: Haloperidol Lactate 5 MG/ML VIAL IM SCH (04:15)
[2018-11-05] MEDS: Sodium Chloride 0.9% 1,000 ML IV SCH (04:17)
[2018-11-05] MEDS: Hydrocortisone Sod Succ/PF 100 mg/2 ml Vial IVP SCH (05:42)
[2018-11-05 05:49] LABS: ALT (SGPT) 18 U/L (8-55); AST (SGOT) 13 U/L (5-34); Albumin 3.1 g/dL (3.4-4.8); Alkaline Phosphatase 78 U/L (40-150); Anion Gap 14 mmol/L (10-20); BUN (Urea Nitrogen) 22 mg/dL (8.4-25.7); Bilirubin, Total 0.4 mg/dL (0.2-1.2); Calc. Creatinine Clearance 48 mL/min (70-130); Calcium 8.1 mg/dL (7.8-10.44); Carbon Dioxide 19 mmol/L (23-31); Chloride 103 mmol/L (98-107); Estimated GFR-MDRD 64; Globulin 3.1 g/dL (2.4-3.5); Glucose 273 mg/dL (83-110); Magnesium 2.1 mg/dL (1.6-2.6); Potassium 3.3 mmol/L (3.5-5.1); Protein, Total 6.2 g/dL (5.8-8.1); Sodium 133 mmol/L (136-145)
[2018-11-05 05:51] LABS: Phosphorus 1.9 mg/dL (2.3-4.7)
[2018-11-05 06:04] LABS: Band 12 % (5-11); Crenated RBC SLIGHT = 1-5 cells (100X) (None Seen); Hemoglobin 7.6 g/dL (14.0-18.0); Lymphocytes 4 % (21-51); MDiff Complete? YES; Mean Corpuscular Hemoglobin 31.9 pg (27.0-31.0); Mean Corpuscular Volume 96.6 fL (78.0-98.0); Mean Platelet Volume 7.8 fL (7.4-10.4); Monocytes 1 % (0-10); Neutrophil 83 % (42-75); PLT Morphology Comment Appears Adequate; Platelet Count 158 thou/uL (130-400); Red Blood Cell (RBC) Count 2.38 mill/uL (4.70-6.10); White Blood Cell (WBC) Count 8.3 thou/uL (4.8-10.8)
[2018-11-05] MEDS ORDERED: Potassium Phosphate 15 MMOL in Sodium Chloride 0.9% 250 ML 250 ML IVPB SCH (07:15)
[2018-11-05] MEDS: Famotidine 20 MG TAB PO SCH ×2 (08:50→20:37)
[2018-11-05] MEDS: Aspirin 81 mg Enteric Coated Tablet PO SCH (08:51)
[2018-11-05] MEDS: Famotidine/PF 20 mg/2ml Vial SLOW IVP SCH (08:51)
[2018-11-05] MEDS ORDERED: Aspirin 325 mg Enteric Coated Tablet PO SCH (09:00)
[2018-11-05 10:27] LABS: Vancomycin, Trough 9.3 ug/mL
[2018-11-05] MEDS: Vancomycin HCl 1 GM in Premix Bag 1 BAG IVPB SCH (11:43)
[2018-11-05] MEDS ORDERED: Vancomycin HCl 0.75 GM in Sodium Chloride 0.9% 250 ML 250 ML IVPB SCH (12:00)
--- NOTE | 2018-11-05 12:02 | PRG ---
DATE OF SERVICE: SUBJECTIVE: This morning, he is awake, alert, and responsive. He is confused. OBJECTIVE: VITAL SIGNS: Sats are 98% on room air, temperature 98, pulse 90, respiratory rate 18, and blood pressure 156/74. CHEST: Bilateral rhonchi and crackles. CARDIAC: Normal S1 and S2. No gallops. ABDOMEN: No masses. LABORATORY DATA: H and H 7.6 and 23, white count 8000, 80 segs, 12 bands. Lytes are normal. Sodium 133. IMPRESSION: 1. Bilateral bronchopneumonia. 2. Confusion. PLAN: The patient wants to go home, though I am concerned, he is probably not ready. Continue antibiotics, neb treatments, and supportive care. Job ID: [id number]
[2018-11-05] MEDS: Insulin Regular 300 UNITS/3 ML VIAL SC PRN ×2 (12:38→18:02)
--- NOTE | 2018-11-05 12:55 | PRG ---
DATE OF SERVICE: 11/05/2018 SUBJECTIVE: The patient denies any new complaints at this time. He had overnight confusion. He received a dose of Haldol per night physician. He is requesting to be discharged. He denies any fever or chills. He has dry cough. REVIEW OF SYSTEMS: As discussed above. No new focal deficit reported. OBJECTIVE: VITAL SIGNS: Temperature 98, pulse 90, respirations 18, O2 saturation 98% on room air. Blood pressure 156/74. Intake 3541, output 1840. Weight 160 pounds. GENERAL: An 87-year-old male, in no apparent distress. LUNGS: Showed rales at bilateral bases. HEART: S1 and S2 present. Regular rate and rhythm. ABDOMEN: Soft and nontender. Bowel sounds present. EXTREMITIES: No edema or calf tenderness. CURRENT MEDICATIONS: Current medications were reviewed. Currently, on vancomycin, Levaquin as well as steroids. DIAGNOSTIC STUDIES: Telemetry monitoring by my review showed sinus rhythm. LABORATORY DATA FINDINGS: Chest x-ray by my review showed bilateral infiltrates. WBC 8.3 with 12% bandemia. He had 30% bandemia yesterday. Sodium 133, potassium 3.3, creatinine 1.08, phosphorus 1.9. Blood cultures negative. Urine cultures negative. IMPRESSION: 1. Toxic metabolic encephalopathy, improving. 2. Severe sepsis with acute organ dysfunction/septic shock, requiring pressors. The etiology appears to be aspiration pneumonia. He also had pyuria; however, his urine culture is negative. 3. Catheter-associated urinary tract infection, suspected. 4. Hypotension, requiring pressors. 5. Acute kidney injury on chronic kidney disease stage 3, improving. 6. Metabolic acidosis/lactic acidosis. 7. Electrolyte abnormalities including hypophosphatemia, hypomagnesemia, and hyponatremia. 8. Elevated troponin secondary to demand ischemia. 9. Chronic diastolic heart failure, appears to be compensated. 10. Chronic anemia - worsening 11. Diabetes mellitus type 2. 12. Hypertension. 13. Hyperlipidemia. 14. Coronary artery disease. 15. Benign prostatic hypertrophy. 16. Peripheral vascular disease. 17. Swallow dysfunction, on modified diet. PLAN: The case was discussed with Dr. Moralez. We will replace electrolytes. We will continue vancomycin. Levaquin has been changed to p.o. We will continue low- dose aspirin. Steroids will be changed to p.o. We will recheck labs in a.m. Continue PT/OT evaluation. We will continue modified diet. Check iron profile and folic acid/Vit B12 in AM. The patient will probably be discharged in 1 to 2 days if stable. Job ID: [id number] [facility]
[2018-11-05] MEDS: Vancomycin HCl 1.5 GM in Sodium Chloride 0.9% 250 ML 300 ML IVPB SCH (13:10)
[2018-11-06] MEDS: Albuterol Sulfate 2.5 mg/3 ml Neb NEB SCH ×5 (00:08→23:25)
[2018-11-06 05:41] LABS: #Lymphocytes 1.9 thou/uL (1.20-3.40); #Monocytes 0.5 thou/uL (0.11-0.59); #Neutrophils 7.4 thou/uL (1.40-6.50); %Basophils 0.1 % (0.0-1.0); %Eosinophils 0.4 % (0.0-10.0); %Lymphocytes 19.4 % (21.0-51.0); %Monocytes 4.7 % (0.0-10.0); %Neutrophils 75.5 % (42.0-75.0); Hemoglobin 7.5 g/dL (14.0-18.0); Mean Corpuscular HGB CONC 33.6 g/dL (32.0-36.0); Mean Corpuscular Hemoglobin 31.9 pg (27.0-31.0); Mean Corpuscular Volume 95.1 fL (78.0-98.0); Mean Platelet Volume 7.7 fL (7.4-10.4); Platelet Count 148 thou/uL (130-400); Red Blood Cell (RBC) Count 2.35 mill/uL (4.70-6.10); White Blood Cell (WBC) Count 9.9 thou/uL (4.8-10.8)
[2018-11-06 06:07] LABS: Albumin 3.1 g/dL (3.4-4.8); Anion Gap 13 mmol/L (10-20); BUN (Urea Nitrogen) 27 mg/dL (8.4-25.7); BUN/Creatinine Ratio 24.55; Calc. Creatinine Clearance 45 mL/min (70-130); Calcium 8.2 mg/dL (7.8-10.44); Carbon Dioxide 21 mmol/L (23-31); Chloride 106 mmol/L (98-107); Estimated GFR-MDRD 63; Glucose 117 mg/dL (83-110); Iron 85 ug/dL (65-175); Iron Binding Capacity, Total 178 mcg/dL (261-462); Phosphorus 2.3 mg/dL (2.3-4.7); Potassium 3.4 mmol/L (3.5-5.1); Sodium 137 mmol/L (136-145)
[2018-11-06 06:32] LABS: Folate (Folic Acid) 10.3 ng/mL (7.0-31.4)
[2018-11-06] MEDS: Famotidine 20 MG TAB PO SCH ×2 (08:48→19:59)
[2018-11-06] MEDS: Aspirin 81 mg Enteric Coated Tablet PO SCH (08:48)
[2018-11-06] MEDS: predniSONE 20 MG TAB PO SCH (08:49)
[2018-11-06] MEDS: Vancomycin HCl 1.5 GM in Sodium Chloride 0.9% 250 ML 300 ML IVPB SCH (12:27)
--- NOTE | 2018-11-06 14:32 | PQF ---
LORA VERDUGO MALIK MD [id number] CLINICAL DOCUMENTATION IMPROVEMENT CLARIFICATION FORM: ICD-10 Updated PLEASE DO AN ADDENDUM TO THE PROGRESS NOTE WITH ANY DOCUMENTATION UPDATES OR ADDITIONS AND CARRY THROUGH TO DC SUMMARY. THANK YOU. DATE: 11-06-18 ATTN: DR. BAUTISTA Please exercise your independent, professional judgment in responding to the clarification form. Clinical indicators are provided on the bottom of this form for your review Please check appropriate box(s): I (concur) with the Nursing findings as stated below. [ ] Pressure Ulcer: (Stage I: Erythema; Stage II: Partial thickness; Stage III : Full thickness; Stage IV: Necrosis to muscle/bone) [ ] Location: POA: [ ] Yes [ ] No[ ] Unable to determine Stage (I to IV): (Left Right Bilateral N/A ) [ ] Pressure Ulcer: (Stage I: Erythema; Stage II: Partial thickness; Stage III : Full thickness; Stage IV: Necrosis to muscle/bone) [ ] Location: POA: [ ] Yes [ ] No[ ] Unable to determine Stage (I to IV): (Left Right Bilateral N/A ) [ ] No pressure ulcer diagnosis [ ] Deep tissue injury [ ] Other diagnosis [ ] Unable to determine In addition, please specify: Present on Admission (POA): [ ] Yes [ ] No [ ] Unable to determine For continuity of documentation, please document condition throughout progress notes and discharge summary. Thank You. 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 TREATMENTS: 11-05 NURSING ASSESSMENT: * MEPILEX DRESSING * FOOT OF BED RAISED WHEN HOB UP TO REDUCE FIRICTION AND SHEAR * SKIN KEPT FROM EXCESSIVE MOISTURE * TURN Q2H * MATTRESS: PRESSURE REDUCTION * INCONTINENCE CARE PRODUCTS USED PRN THANK YOU, МАРИНА (This form is maintained as a part of the permanent medical record) 2015 [employer]. All Rights Reserved Марина Elmore RN, BS [email or web address] Cell [facility]
--- NOTE | 2018-11-06 16:15 | PRG ---
DATE OF SERVICE: 11/06/2018 SERVICE: Pulmonary Medicine. INTERVAL HISTORY: His mentation is kind of wax and wane throughout the day. He will have episodes in which he is clear talking. Then, he will be little bit confused and agitated. That being said, he does not have any significant discomforts of shortness of breath, or chest discomfort. He is not having any abdominal discomfort, and denies any nausea, vomiting, or diarrhea. Otherwise, there has been no notable change to his condition. OBJECTIVE: VITAL SIGNS: Afebrile, pulse 76, blood pressure 148/66, respirations 20, saturation 93% on room air. GENERAL: The patient is awake and alert, in no apparent distress. LUNGS: Decent air entry. Rhonchi present in the right base. There is no prolonged expiratory phase or wheezing appreciated. HEART: Normal rate, regular. ABDOMEN: Soft, nontender, and nondistended. Bowel sounds are positive. MUSCULOSKELETAL: No cyanosis or clubbing. No pitting in the bilateral lower extremities. NEUROLOGIC: Grossly nonfocal. LABORATORY DATA: WBC 9.9, hemoglobin 7.5, and platelets 148,000. Basic metabolic profile is essentially unremarkable with a creatinine that is improved to 1.10. Cortisol was previously 31.6. Glucose ranges from 114 to 159. Potassium 3.4. Blood cultures x2, influenza A and B are negative. Urine culture is also unremarkable. ASSESSMENT: 1. Acute hypoxic respiratory failure, resolved. 2. Septic shock, resolved. 3. Community-acquired pneumonia. DISCUSSION AND PLAN: The patient can be converted over to p.o. antibiotics. From my perspective, he is stable for transition out of the hospital. He will need a 7-day course of antibiotics and a repeat chest x-ray in 4 to 6 weeks in the outpatient setting to verify if the infiltrate resolves. Potassium will be replaced today. We will continue mobilization efforts. Pulmonary Critical Care will continue to follow if the patient remains inhouse. Job ID: [id number]
[2018-11-06] MEDS: Insulin Regular 300 UNITS/3 ML VIAL SC PRN (17:45)
--- NOTE | 2018-11-06 21:04 | PDOC.PN ---
- Subjective Encounter Start Date: 11/06/18 Encounter Start Time: 12:00 Patient seen and examined for Sepsis. Intermittent confusion per RN. No new complaints. No overnight events - Objective Resuscitation Status - Order Detail: 11/03/18 14:45 Resuscitation Status Routine Resuscitation Status: DNAR: NO Resuscitation Discussed with: confirmed with DPOA MAR Reviewed: Yes Vital Signs & Weight: Vital Signs (12 hours) Temp Pulse Resp Pulse Ox 11/06/18 19:13 98.3 F 91 16 95 11/06/18 18:22 80 16 95 11/06/18 12:55 82 16 93 L Weight Admit Weight 160 lb 0.889 oz Weight 153 lb 1 oz Most Recent Monitor Data Heart Rate from ECG 83 NIBP 119/54 NIBP BP-Mean 70 Respiration from ECG 22 SpO2 100 I&O: 11/05/18 11/06/18 11/07/18 06:59 06:59 06:59 Intake Total 3541 760 Output Total 1840 350 Balance 1701 410 Result Diagrams: 11/06/18 05:20 11/06/18 05:20 Additional Labs: Accuchecks 11/06/18 11/06/18 11/06/18 15:43 11:36 07:51 POC Glucose 209 H 159 H 126 H 11/06/18 11/06/18 11/05/18 05:39 00:10 19:05 POC Glucose 114 H 115 H 182 H Phys Exam - Physical Examination Constitutional: NAD Respiratory: no wheezing Bibasilar rales with scat rhonchi Cardiovascular: RRR, no rub Gastrointestinal: soft, non-tender Musculoskeletal: no edema Neurological: non-focal Dx/Plan - Plan DVT proph w/SCDs 1. Severe sepsis with acute organ dysfunction/septic shock secondary to catheter associated UTI/ Aspiration pneumonia. 2. Hypotension - pressors dced. 3. Acute kidney injury on chronic kidney disease stage 3. improving 4. Metabolic acidosis/lactic acidosis. 5. Elevated troponins secondary to demand ischemia. 6. Hyponatremia/Hypomagnessemia/Hypophosphatemia/hypokalemia 7. Chronic diastolic heart failure. 8. Chronic anemia. 9. Diabetes mellitus type 2. 10. Hypertension. 11. Hyperlipidemia. 12. Coronary artery disease. 13. Benign prostatic hypertrophy. 14. Peripheral vascular disease. 15. Pressure ulcer present on admission (STAGE 2 SACROCOCCYGEAL, STAGE 1 JAMIL TIPS GREAT TOES, STAGE 1 RIGHT HEEL / LEFT HEEL) PLAN: Cont current Atbx with low dose steroids Replace Potassium DC Planning in AM if stable AM labs Review of Systems - Review of Systems Cardiovascular: negative: chest pain, palpitations, orthopnea, paroxysmal nocturnal dyspnea, edema, light headedness, other Gastrointestinal: negative: Nausea, Vomiting, Abdominal Pain, Diarrhea, Constipation, Melena, Hematochezia, Other - Medications/Allergies Allergies/Adverse Reactions: Allergies Allergy/AdvReac Type Severity Reaction Status Date / Time penicillin G Allergy Rash Verified 07/12/18 14:49 Medications: Current Medications Acetaminophen (Tylenol Elixir) 650 mg PO Q6H PRN PRN Reason: Fever > 101 or Mild Pain Acetaminophen (Tylenol) 650 mg MS Q6H PRN PRN Reason: Fever > 101 or Mild Pain Albuterol Sulfate (Ventolin) 2.5 mg NEB [id number] [facility] Last Admin: 11/06/18 18:22 Dose: 2.5 mg Aspirin (Ecotrin) 81 mg PO DAILY [facility] Last Admin: 11/06/18 08:48 Dose: 81 mg Bisacodyl (Dulcolax) 10 mg MS DAILYPRN PRN PRN Reason: Constipation Dextrose/Water (Dextrose 50%) 25 gm SLOW IVP PRN PRN PRN Reason: Hypoglycemia Famotidine (Pepcid) 20 mg PO BID [facility] Last Admin: 11/06/18 19:59 Dose: 20 mg Glucagon (Glucagon) 1 mg IM PRN PRN PRN Reason: Hypoglycemia Norepinephrine Bitartrate (Levophed) 250 mls @ 0 mls/hr IVPB PRN PRN; Protocol PRN Reason: To maintain MAP > 65 Dextrose/Water (D5w) 1,000 mls @ 0 mls/hr IV .Q0M PRN PRN Reason: Hypoglycemia Vancomycin HCl 1.5 gm/ Sodium (Chloride) 300 mls @ 200 mls/hr IVPB 1200 [facility] Last Admin: 11/06/18 12:27 Dose: 300 mls Insulin Human Regular (Humulin R) 0 units SC .MILD SLIDING SCALE PRN PRN Reason: Mild Correctional Scale Last Admin: 11/06/18 17:45 Dose: 3 unit Levofloxacin (Levaquin) 500 mg PO 0600 [facility] Last Admin: 11/06/18 05:32 Dose: 500 mg Mineral Oil/White Petrolatum (Systane Nighttime Eye Ointment) 0 gm EA EYE PRN PRN PRN Reason: Dry Eyes Miscellaneous Medication (Pharmacy To Dose) 1 each IVPB ASDIR PRN PRN Reason: antibiotics based on renal fun Miscellaneous Medication (Phos-Nak) 1 pkt PO TID [facility] Last Admin: 11/06/18 20:02 Dose: 1 pkt Ondansetron HCl (Zofran Odt) 4 mg PO Q6H PRN PRN Reason: Nausea/Vomiting Ondansetron HCl (Zofran) 4 mg IVP Q6H PRN PRN Reason: Nausea/Vomiting Potassium Chloride (Klor-Con) 20 meq PO QAM-[facility] Last Admin: 11/06/18 08:48 Dose: 20 meq Prednisone (Prednisone) 20 mg PO QAM-WM [facility] Last Admin: 11/06/18 08:49 Dose: 20 mg Senna/Docusate Sodium (Senokot S) 2 tab PO BID PRN PRN Reason: Constipation Sodium Chloride (Flush - Normal Saline) 10 ml IVF PRN PRN PRN Reason: Saline Flush
[2018-11-07] MEDS: Albuterol Sulfate 2.5 mg/3 ml Neb NEB SCH ×3 (06:04→18:02)
[2018-11-07 07:15] LABS: #Lymphocytes 1.6 thou/uL (1.20-3.40); #Monocytes 0.6 thou/uL (0.11-0.59); #Neutrophils 5.1 thou/uL (1.40-6.50); %Basophils 0.2 % (0.0-1.0); %Eosinophils 0.3 % (0.0-10.0); %Lymphocytes 21.4 % (21.0-51.0); %Monocytes 7.9 % (0.0-10.0); %Neutrophils 70.2 % (42.0-75.0); Hemoglobin 7.7 g/dL (14.0-18.0); Mean Corpuscular HGB CONC 33.2 g/dL (32.0-36.0); Mean Corpuscular Hemoglobin 31.9 pg (27.0-31.0); Platelet Count 150 thou/uL (130-400); RBC Distribution Width 14.3 % (11.5-14.5); Red Blood Cell (RBC) Count 2.43 mill/uL (4.70-6.10); White Blood Cell (WBC) Count 7.3 thou/uL (4.8-10.8)
[2018-11-07 07:45] LABS: Albumin 3.1 g/dL (3.4-4.8); Anion Gap 15 mmol/L (10-20); BUN (Urea Nitrogen) 33 mg/dL (8.4-25.7); BUN/Creatinine Ratio 26.83; Calc. Creatinine Clearance 40 mL/min (70-130); Calcium 8.2 mg/dL (7.8-10.44); Carbon Dioxide 19 mmol/L (23-31); Chloride 108 mmol/L (98-107); Estimated GFR-MDRD 55; Glucose 150 mg/dL (83-110); Sodium 138 mmol/L (136-145)
[2018-11-07] MEDS: Famotidine 20 MG TAB PO SCH ×2 (09:00→19:59)
[2018-11-07] MEDS: predniSONE 20 MG TAB PO SCH (09:00)
[2018-11-07] MEDS: Aspirin 81 mg Enteric Coated Tablet PO SCH (09:00)
[2018-11-07 11:24] LABS: Vancomycin, Trough 21.7 ug/mL
[2018-11-07] MEDS: Vancomycin HCl 1.5 GM in Sodium Chloride 0.9% 250 ML 300 ML IVPB SCH (12:00)
[2018-11-07] MEDS ORDERED: Vancomycin HCl 1.25 GM in Sodium Chloride 0.9% 250 ML 250 ML IVPB SCH (12:00)
--- NOTE | 2018-11-07 15:05 | PDOC.PN ---
- Subjective Encounter Start Date: 11/07/18 Encounter Start Time: 12:00 Patient seen and examined for Sepsis. Feels weak. No new complaints. No overnight events - Objective Resuscitation Status - Order Detail: 11/03/18 14:45 Resuscitation Status Routine Resuscitation Status: DNAR: NO Resuscitation Discussed with: confirmed with DPOA MAR Reviewed: Yes Vital Signs & Weight: Vital Signs (12 hours) Temp Pulse Resp BP Pulse Ox 11/07/18 11:48 91 18 92 L 11/07/18 08:06 98.8 F 98 20 168/87 H 94 L 11/07/18 08:00 94 L 11/07/18 06:04 84 16 94 L Weight Admit Weight 160 lb 0.889 oz Weight 153 lb 10.595 oz Most Recent Monitor Data Heart Rate from ECG 83 NIBP 119/54 NIBP BP-Mean 70 Respiration from ECG 22 SpO2 100 I&O: 11/06/18 11/07/18 11/08/18 06:59 06:59 06:59 Intake Total 910 480 Output Total 700 Balance 210 480 Result Diagrams: 11/07/18 05:40 11/07/18 05:40 Additional Labs: Accuchecks 11/07/18 11/07/18 11/06/18 09:00 03:37 23:14 POC Glucose 195 H 173 H 195 H 11/06/18 11/06/18 19:17 15:43 POC Glucose 231 H 209 H Phys Exam - Physical Examination Constitutional: NAD Respiratory: no wheezing, no rhonchi Cardiovascular: RRR, no rub Gastrointestinal: soft, non-tender, positive bowel sounds Neurological: moves all 4 limbs Dx/Plan - Plan DVT proph w/SCDs 1. Severe sepsis with acute organ dysfunction/septic shock secondary to catheter associated UTI/ Aspiration pneumonia. 2. Hypotension - requiring pressors. 3. Acute kidney injury on chronic kidney disease stage 3. improving 4. Metabolic acidosis/lactic acidosis. 5. Elevated troponins secondary to demand ischemia. 6. Hyponatremia/Hypomagnessemia/Hypophosphatemia/hypokalemia 7. Chronic diastolic heart failure. 8. Chronic anemia. 9. Diabetes mellitus type 2. 10. Hypertension. 11. Hyperlipidemia. 12. Coronary artery disease. 13. Benign prostatic hypertrophy. 14. Peripheral vascular disease. 15. Pressure ulcer present on admission (STAGE 2 SACROCOCCYGEAL, STAGE 1 JAMIL TIPS GREAT TOES, STAGE 1 RIGHT HEEL / LEFT HEEL) PLAN: DC Vancomycin Cont Levaquin SNF Eval Cont other meds as below Review of Systems - Review of Systems Respiratory: negative: Cough, Dry, Shortness of Breath, Hemoptysis, SOB with Excertion, Pleuritic Pain, Sputum, Wheezing Cardiovascular: negative: chest pain, palpitations, orthopnea, paroxysmal nocturnal dyspnea, edema, light headedness, other Gastrointestinal: negative: Nausea, Vomiting, Abdominal Pain, Diarrhea, Constipation, Melena, Hematochezia, Other - Medications/Allergies Allergies/Adverse Reactions: Allergies Allergy/AdvReac Type Severity Reaction Status Date / Time penicillin G Allergy Rash Verified 07/12/18 14:49 Medications: Current Medications Acetaminophen (Tylenol Elixir) 650 mg PO Q6H PRN PRN Reason: Fever > 101 or Mild Pain Acetaminophen (Tylenol) 650 mg CO Q6H PRN PRN Reason: Fever > 101 or Mild Pain Albuterol Sulfate (Ventolin) 2.5 mg NEB [id number] [facility] Last Admin: 11/07/18 11:48 Dose: 2.5 mg Amlodipine Besylate (Norvasc) 2.5 mg PO DAILY [facility] Aspirin (Ecotrin) 81 mg PO DAILY [facility] Last Admin: 11/07/18 09:00 Dose: 81 mg Bisacodyl (Dulcolax) 10 mg CO DAILYPRN PRN PRN Reason: Constipation Dextrose/Water (Dextrose 50%) 25 gm SLOW IVP PRN PRN PRN Reason: Hypoglycemia Famotidine (Pepcid) 20 mg PO BID [facility] Last Admin: 11/07/18 09:00 Dose: 20 mg Glucagon (Glucagon) 1 mg IM PRN PRN PRN Reason: Hypoglycemia Dextrose/Water (D5w) 1,000 mls @ 0 mls/hr IV .Q0M PRN PRN Reason: Hypoglycemia Insulin Human Regular (Humulin R) 0 units SC .MILD SLIDING SCALE PRN PRN Reason: Mild Correctional Scale Last Admin: 11/06/18 17:45 Dose: 3 unit Levofloxacin (Levaquin) 500 mg PO 0600 [facility] Last Admin: 11/07/18 05:45 Dose: 500 mg Mineral Oil/White Petrolatum (Systane Nighttime Eye Ointment) 0 gm EA EYE PRN PRN PRN Reason: Dry Eyes Miscellaneous Medication (Pharmacy To Dose) 1 each IVPB ASDIR PRN PRN Reason: antibiotics based on renal fun Ondansetron HCl (Zofran Odt) 4 mg PO Q6H PRN PRN Reason: Nausea/Vomiting Ondansetron HCl (Zofran) 4 mg IVP Q6H PRN PRN Reason: Nausea/Vomiting Potassium Chloride (Klor-Con) 20 meq PO QAM-[facility] Last Admin: 11/07/18 09:01 Dose: 20 meq Prednisone (Prednisone) 20 mg PO QAM-WM [facility] Last Admin: 11/07/18 09:00 Dose: 20 mg Saccharomyces Boulardii (Florastor) 250 mg PO DAILY [facility] Senna/Docusate Sodium (Senokot S) 2 tab PO BID PRN PRN Reason: Constipation Sodium Chloride (Flush - Normal Saline) 10 ml IVF PRN PRN PRN Reason: Saline Flush
--- NOTE | 2018-11-07 16:07 | PRG ---
DATE OF SERVICE: 11/07/2018 Sanju Bashir is in no distress. He is afebrile. Heart rate is 98, respiratory rate is 20, oximetry is 92 to 94 on room air, blood pressure 168/87. Physical Therapy is trying to walk with him. He is not very interested in walking. Lungs remarkable for mild bronchitis at right base. Heart; regular rhythm, S1 and S2 are normal. Abdomen is soft and nontender. Extremities without edema. IMPRESSION: 1. Community-acquired pneumonia. 2. Resolved acute hypoxic respiratory failure. 3. Blood cultures are negative at 48 hours. 4. He appears to be progressing slowly. 5. He will likely benefit from jail placement. Job ID: [id number]
[2018-11-07] MEDS: Insulin Regular 300 UNITS/3 ML VIAL SC PRN (18:46)
[2018-11-08] MEDS: Albuterol Sulfate 2.5 mg/3 ml Neb NEB SCH ×4 (00:06→19:17)
[2018-11-08] MEDS: Famotidine 20 MG TAB PO SCH ×2 (07:50→19:46)
[2018-11-08] MEDS: Saccharomyces boulardii 250 MG CAP PO SCH (07:50)
[2018-11-08] MEDS: Amlodipine 5 MG TAB PO SCH (07:51)
[2018-11-08] MEDS: Aspirin 81 mg Enteric Coated Tablet PO SCH (07:52)
[2018-11-08] MEDS: predniSONE 20 MG TAB PO SCH (07:52)
--- NOTE | 2018-11-08 10:06 | PDOC.PN ---
- Subjective Encounter Start Date: 11/08/18 Encounter Start Time: 08:45 Patient seen and examined for Sepsis. Feels better. No CP/SOB. No new complaints. No overnight events - Objective Resuscitation Status - Order Detail: 11/03/18 14:45 Resuscitation Status Routine Resuscitation Status: DNAR: NO Resuscitation Discussed with: confirmed with DPOA MAR Reviewed: Yes Vital Signs & Weight: Vital Signs (12 hours) Temp Pulse Resp BP BP Pulse Ox 11/08/18 08:56 98.0 F 88 16 156/74 H 91 L 11/08/18 07:51 92 11/08/18 06:33 92 20 92 L 11/08/18 03:11 98.1 F 89 16 151/81 H 92 L 11/08/18 02:10 92 L 11/08/18 00:06 87 16 91 L Weight Admit Weight 160 lb 0.889 oz Weight 148 lb 9.465 oz Most Recent Monitor Data Heart Rate from ECG 83 NIBP 119/54 NIBP BP-Mean 70 Respiration from ECG 22 SpO2 100 I&O: 11/07/18 11/08/18 11/09/18 06:59 06:59 06:59 Intake Total 910 920 Output Total 700 750 Balance 210 170 Result Diagrams: 11/07/18 05:40 11/07/18 05:40 Additional Labs: Accuchecks 11/08/18 11/07/18 11/07/18 04:59 20:00 17:04 POC Glucose 161 H 217 H 273 H Phys Exam - Physical Examination Constitutional: NAD Respiratory: no wheezing Rales and rhonchi at bases Cardiovascular: RRR, no rub Gastrointestinal: soft, non-tender, positive bowel sounds Musculoskeletal: no edema Neurological: moves all 4 limbs Dx/Plan - Plan DVT proph w/SCDs 1. Severe sepsis with acute organ dysfunction/septic shock secondary to catheter associated UTI/ Aspiration pneumonia. 2. Hypotension - requiring pressors. 3. Acute kidney injury on chronic kidney disease stage 3. improving 4. Metabolic acidosis/lactic acidosis. 5. Elevated troponins secondary to demand ischemia. 6. Hyponatremia/Hypomagnessemia/Hypophosphatemia/hypokalemia 7. Chronic diastolic heart failure. 8. Chronic anemia. 9. Diabetes mellitus type 2. 10. Hypertension. 11. Hyperlipidemia. 12. Coronary artery disease. 13. Benign prostatic hypertrophy. 14. Peripheral vascular disease. 15. Pressure ulcer present on admission (STAGE 2 SACROCOCCYGEAL, STAGE 1 JAMIL TIPS GREAT TOES, STAGE 1 RIGHT HEEL / LEFT HEEL) PLAN: Cont low dose Amlodipine Cont Levaquin/Steroids Stable for dc Await SNF placement Cont wound care Cont other meds as below Urine cultures prob negative since patient was already on antibiotics prior to admission Review of Systems - Review of Systems Constitutional: weakness (gen). negative: fever, chills, sweats, malaise, other Respiratory: negative: Cough, Dry, Shortness of Breath, Hemoptysis, SOB with Excertion, Pleuritic Pain, Sputum, Wheezing Cardiovascular: negative: chest pain, palpitations, orthopnea, paroxysmal nocturnal dyspnea, edema, light headedness, other - Medications/Allergies Allergies/Adverse Reactions: Allergies Allergy/AdvReac Type Severity Reaction Status Date / Time penicillin G Allergy Rash Verified 07/12/18 14:49 Medications: Current Medications Acetaminophen (Tylenol Elixir) 650 mg PO Q6H PRN PRN Reason: Fever > 101 or Mild Pain Acetaminophen (Tylenol) 650 mg NJ Q6H PRN PRN Reason: Fever > 101 or Mild Pain Albuterol Sulfate (Ventolin) 2.5 mg NEB [id number] [facility] Last Admin: 11/08/18 06:33 Dose: 2.5 mg Amlodipine Besylate (Norvasc) 2.5 mg PO DAILY [facility] Last Admin: 11/08/18 07:51 Dose: 2.5 mg Aspirin (Ecotrin) 81 mg PO DAILY [facility] Last Admin: 11/08/18 07:52 Dose: 81 mg Bisacodyl (Dulcolax) 10 mg NJ DAILYPRN PRN PRN Reason: Constipation Dextrose/Water (Dextrose 50%) 25 gm SLOW IVP PRN PRN PRN Reason: Hypoglycemia Famotidine (Pepcid) 20 mg PO BID [facility] Last Admin: 11/08/18 07:50 Dose: 20 mg Glucagon (Glucagon) 1 mg IM PRN PRN PRN Reason: Hypoglycemia Dextrose/Water (D5w) 1,000 mls @ 0 mls/hr IV .Q0M PRN PRN Reason: Hypoglycemia Insulin Human Regular (Humulin R) 0 units SC .MILD SLIDING SCALE PRN PRN Reason: Mild Correctional Scale Last Admin: 11/07/18 18:46 Dose: 4 unit Levofloxacin (Levaquin) 500 mg PO 0600 [facility] Last Admin: 11/08/18 05:18 Dose: 500 mg Mineral Oil/White Petrolatum (Systane Nighttime Eye Ointment) 0 gm EA EYE PRN PRN PRN Reason: Dry Eyes Miscellaneous Medication (Pharmacy To Dose) 1 each IVPB ASDIR PRN PRN Reason: antibiotics based on renal fun Ondansetron HCl (Zofran Odt) 4 mg PO Q6H PRN PRN Reason: Nausea/Vomiting Ondansetron HCl (Zofran) 4 mg IVP Q6H PRN PRN Reason: Nausea/Vomiting Potassium Chloride (Klor-Con) 20 meq PO QA-[facility] Last Admin: 11/08/18 07:50 Dose: 20 meq Prednisone (Prednisone) 20 mg PO QA-[facility] Last Admin: 11/08/18 07:52 Dose: 20 mg Saccharomyces Boulardii (Florastor) 250 mg PO DAILY [facility] Last Admin: 11/08/18 07:50 Dose: 250 mg Senna/Docusate Sodium (Senokot S) 2 tab PO BID PRN PRN Reason: Constipation Sodium Chloride (Flush - Normal Saline) 10 ml IVF PRN PRN PRN Reason: Saline Flush
[2018-11-08] MEDS: Insulin Regular 300 UNITS/3 ML VIAL SC PRN ×2 (12:53→17:33)
--- NOTE | 2018-11-08 16:56 | PRG ---
DATE OF SERVICE: 11/08/2018 SERVICE: Pulmonary Medicine INTERVAL HISTORY: The patient is doing fine from respiratory standpoint. He is on room air. He has no complaints of shortness of breath or chest discomfort. Otherwise, there has been no interval change to his condition. PHYSICAL EXAMINATION: VITAL SIGNS: Afebrile. Pulse 88, blood pressure 156/74, respirations 16, saturation 92% on room air. GENERAL: The patient is awake, alert, in no apparent distress. LUNGS: Excellent air entry. Rhonchi present in the right base. There is no prolonged expiratory phase or wheezing. HEART: Normal rate and regular. ABDOMEN: Soft, nontender, and nondistended. Bowel sounds are positive. MUSCULOSKELETAL: No cyanosis or clubbing. No pitting in the bilateral lower extremities. NEUROLOGIC: Grossly nonfocal. LABORATORY DATA: WBC 7.3, hemoglobin 7.7, platelets 150,000 and stable. INR 1.2. Creatinine 1.23. Basic metabolic profile is otherwise unremarkable. Blood cultures x2, urine culture, and influenza A and B are unremarkable. ASSESSMENT: 1. Acute hypoxic respiratory failure, resolved. 2. Septic shock, resolved. 3. Community-acquired pneumonia. DISCUSSION AND PLAN: The patient is stable for transition out of the hospital. He will need a repeat x-ray in 4 to 6 weeks in the outpatient setting to verify the infiltrate resolves. Pulmonary Critical Care will continue to follow along while the patient remains inhouse. Please call with additional questions or concerns moving forward. Job ID: [id number]
[2018-11-09] MEDS: Albuterol Sulfate 2.5 mg/3 ml Neb NEB SCH ×4 (00:21→18:44)
[2018-11-09 07:31] LABS: Hemoglobin 8.1 g/dL (14.0-18.0); Platelet Count 135 thou/uL (130-400)
[2018-11-09 07:50] LABS: Anion Gap 18 mmol/L (10-20); BUN (Urea Nitrogen) 44 mg/dL (8.4-25.7); Calc. Creatinine Clearance 33 mL/min (70-130); Calcium 8.7 mg/dL (7.8-10.44); Carbon Dioxide 17 mmol/L (23-31); Chloride 110 mmol/L (98-107); Estimated GFR-MDRD 47; Glucose 158 mg/dL (83-110); Potassium 4.1 mmol/L (3.5-5.1); Sodium 141 mmol/L (136-145)
[2018-11-09] MEDS: Famotidine 20 MG TAB PO SCH ×2 (09:50→19:08)
[2018-11-09] MEDS: Saccharomyces boulardii 250 MG CAP PO SCH (09:50)
[2018-11-09] MEDS: predniSONE 20 MG TAB PO SCH (09:50)
[2018-11-09] MEDS: Aspirin 81 mg Enteric Coated Tablet PO SCH (09:50)
[2018-11-09] MEDS: Amlodipine 5 MG TAB PO SCH (09:50)
--- NOTE | 2018-11-09 11:07 | PRG ---
DATE OF SERVICE: 11/09/2018 SUBJECTIVE: Demented, deaf gentleman. OBJECTIVE: GENERAL: Appears to be in no distress. VITAL SIGNS: Sats are 91% room air, blood pressure 159/92, temperature 98, pulse 80, respiratory rate 18. CHEST: Bilateral crackles. CARDIAC: Normal S1, S2. No gallops. ABDOMEN: No masses. LABORATORY DATA: Creatinine 1.42. IMPRESSION: 1. Aspiration pneumonia. 2. Nausea, vomiting, improved. DISPOSITION: [facility] placement. We will follow. Job ID: [id number]
--- NOTE | 2018-11-09 13:57 | PDOC.PN ---
- Subjective Encounter Start Date: 11/09/18 Encounter Start Time: 13:00 Subjective: Sitting up, friends in room visiting. Anxious to get home but agreeable to -: SNF placement. Awaiting acceptance at patient's preferred facility. -: No nausea or vomiting. Thickening liquid with meals, clear water b/w meals - Objective Resuscitation Status - Order Detail: 11/03/18 14:45 Resuscitation Status Routine Resuscitation Status: DNAR: NO Resuscitation Discussed with: confirmed with DPOA Vital Signs & Weight: Vital Signs (12 hours) Temp Pulse Resp BP BP BP Pulse Ox 11/09/18 09:50 97 155/92 H 11/09/18 08:00 98.1 F 97 16 155/92 H 91 L 11/09/18 04:57 97.4 F L 82 18 152/82 H 93 L Weight Admit Weight 160 lb 0.889 oz Weight 145 lb 8.787 oz Most Recent Monitor Data Heart Rate from ECG 83 NIBP 119/54 NIBP BP-Mean 70 Respiration from ECG 22 SpO2 100 I&O: 11/08/18 11/09/18 11/10/18 06:59 06:59 06:59 Intake Total 920 580 Output Total 750 750 Balance 170 -170 Result Diagrams: 11/09/18 07:01 11/09/18 07:01 Additional Labs: Accuchecks 11/09/18 11/09/18 11/08/18 11:25 04:46 19:23 POC Glucose 183 H 151 H 174 H 11/08/18 16:43 POC Glucose 208 H Phys Exam - Physical Examination Elderly gentleman sitting up in bed HEENT: PERRLA Neck: supple, full ROM Fair aeration Cardiovascular: RRR Gastrointestinal: soft, non-tender Musculoskeletal: no edema Neurological: non-focal, moves all 4 limbs Psychiatric: normal affect Deviation from normal: Tangential speech. Oriented to person, place, not to time Skin: no rash Dx/Plan (1) Anemia in chronic illness Code(s): D63.8 - ANEMIA IN OTHER CHRONIC DISEASES CLASSIFIED ELSEWHERE Status : Chronic (2) Physical deconditioning Code(s): R53.81 - OTHER MALAISE Status: Acute (3) UTI (urinary tract infection) Status: Acute Plan: Blood cultures negative, on abx on admit, likely pretreated as urine culture also negative (4) Diabetes type 2, controlled Code(s): E11.9 - TYPE 2 DIABETES MELLITUS WITHOUT COMPLICATIONS Status: Chronic (5) Dyslipidemia Code(s): E78.5 - HYPERLIPIDEMIA, UNSPECIFIED Status: Chronic (6) Hypertension Code(s): I10 - ESSENTIAL (PRIMARY) HYPERTENSION Status: Chronic (7) Pneumonia Code(s): J18.9 - PNEUMONIA, UNSPECIFIED ORGANISM Status: Acute Qualifiers: Pneumonia type: aspiration pneumonia Plan: Continue speech therapy and dietary modifications - Plan * Pulm - low dose steroids/abx, speech therapy * ID - completing abx * Case management - awaiting placement at patient's first choice facility * Patient will need PT/OT prior to transitioning home. * High risk due to age/comorbidities * Heme - Hg stable
[2018-11-09] MEDS: Insulin Regular 300 UNITS/3 ML VIAL SC PRN (18:01)
[2018-11-10] MEDS: Albuterol Sulfate 2.5 mg/3 ml Neb NEB SCH ×4 (00:04→18:40)
[2018-11-10] MEDS: Aspirin 81 mg Enteric Coated Tablet PO SCH (08:01)
[2018-11-10] MEDS: Famotidine 20 MG TAB PO SCH ×2 (08:01→19:30)
[2018-11-10] MEDS: predniSONE 20 MG TAB PO SCH (08:01)
[2018-11-10] MEDS: Saccharomyces boulardii 250 MG CAP PO SCH (08:02)
[2018-11-10] MEDS: Amlodipine 5 MG TAB PO SCH (08:03)
--- NOTE | 2018-11-10 09:21 | RAD ---
SINGLE VIEW OF THE CHEST: Comparison: 11-04-18 History: Pneumonia. FINDINGS: Single view of the chest shows a normal sized cardiomediastinal silhouette. The patient is status pos t sternotomy. There are small bilateral pleural effusions suggesting atelectasis versus infiltrates. There are right sided rib fractures. IMPRESSION: Bilateral pleural effusions with adjacent atelectasis versus infiltrate. POS: [facility]
--- NOTE | 2018-11-10 09:52 | PRG ---
DATE OF SERVICE: 11/10/2018 SUBJECTIVE: Sanju Bashir is awake and responsive. OBJECTIVE: VITAL SIGNS: Temperature is 98, blood pressure 164/88, saturations are 94% on room air, and respirations 16. GENERAL: He appears to be in no distress. CHEST: Decreased breath sounds. No wheezing. CARDIAC: Normal S1 and S2. No gallops. ABDOMEN: Soft. No masses. IMPRESSION: Advanced age, diabetes, and pneumonia. PLAN: Pulmonary kwong, the patient appears to be stable enough to be transferred to a fpc, p.o. antibiotics on board. Job ID: [id number]
[2018-11-10] MEDS: Insulin Regular 300 UNITS/3 ML VIAL SC PRN (17:10)
[2018-11-11] MEDS: Albuterol Sulfate 2.5 mg/3 ml Neb NEB SCH ×5 (03:48→23:29)
--- NOTE | 2018-11-11 06:47 | DIS ---
DATE OF ADMISSION: 11/03/2018 DATE OF DISCHARGE: 11/10/2018 DISCHARGE DISPOSITION: [facility] PRIMARY CARE PHYSICIAN: Jaquan Gonzalez MD. CODE STATUS: Do Not Resuscitate. SURROGATE DECISION MAKER: Yuki, . CHIEF COMPLAINT: Alteration in mental status. PRINCIPAL DIAGNOSES ON ADMISSION: 1. Severe sepsis with acute organ dysfunction. 2. Hypotension, requiring pressors, in the context of sepsis. 3. Acute kidney injury, superimposed on chronic kidney disease stage 3. 4. Metabolic acidosis. 5. Elevated troponins secondary to demand ischemia. 6. Hyponatremia. 7. Chronic diastolic congestive heart failure. 8. Chronic anemia. 9. Type 2 diabetes. 10. Essential hypertension. 11. Dyslipidemia. 12. History of coronary artery disease. 13. Benign prostatic hypertrophy with chronic indwelling Denton catheter. 14. Peripheral vascular disease. DISCHARGE DIAGNOSES: 1. Severe sepsis with acute organ dysfunction, secondary to aspiration pneumonia, as well as urinary tract infection, pretreated in the context of prior antibiotics, with subsequent negative urine culture results. 2. Hypotension, resolved. 3. Acute kidney injury, superimposed on chronic kidney disease stage 3, stabilized. 4. Metabolic acidosis/lactic acidosis, stabilized. 5. Elevated troponins secondary to demand ischemia, resolved. 6. Hyponatremia, improved. 7. Chronic diastolic heart failure, compensated. 8. Chronic anemia, discharge hemoglobin 8.1. 9. Type 2 diabetes. 10. Essential hypertension. 11. Oropharyngeal dysphagia. 12. Dyslipidemia. 13. Coronary artery disease. 14. Benign prostatic hypertrophy with chronic indwelling Denton catheter. 15. Peripheral vascular disease. HOSPITAL COURSE: Mr. Bashir is an 87-year-old gentleman with a history of urinary retention secondary to benign prostatic hypertrophy, with indwelling Denton catheter, essential hypertension, type 2 diabetes, presenting to the hospital with altered mental status. At the time of ER evaluation, chest x-ray also performed, showing bibasilar space opacities, worsened in the left lower lobe, concerning for multifocal pneumonia. The patient had been found at home, where he has 24-hour care, with altered mental status. An episode of vomiting had been reported on the morning of admission, with concern for aspiration. Elevated temperature as noted by EMS was 101 degrees. In the emergency department, pulse rate of 113, blood pressure 115/59, heart rate 130 via EMS. Elevated lactic acid noted. Central line was placed, with subsequent requirement for pressors, and transitioned to critical care unit. His condition was treated with antibiotics and supportive care. Condition stabilized over the ensuing days, and he was transferred to medical floor. Speech therapy arranged, finally is concerning for oropharyngeal dysphagia. Dietary modifications made, as below. Oxygen weaned over the ensuing days, with respiratory therapy, scheduled nebs, as well as steroid taper applied. The patient will complete antibiotic course as described below, then will proceed to residential for additional help with mobilization, as PT/OT is present . He does have a history of diastolic congestive heart failure in the past, which has remained compensated. The patient is eager to return home with his in-home care, is agreeable to short stay at residential to better meet goals for transition. I have seen and examined him this morning. Chest x-ray most recently 11/10/2018 remains abnormal, as one would expect in this short interval followup. He has small bilateral pleural effusions suggestive of atelectasis. He will continue inspiratory spirometry and pulmonary toilet at the nursing facility. On physical exam, upper airways are fairly clear. Heart rate is regular. Abdomen is soft and nontender. Denton catheter is in place. No significant lower extremity edema is noted. MEDICATIONS/DISCHARGE INSTRUCTIONS: Are as follows; 1. Out of hospital DNR. 2. Medications: a. Mild insulin sliding scale per facility protocol, with Accu-Cheks q.a.c., at bedtime. b. Tylenol elixir 650 mg p.o. q.6h p.r.n. pain or fever. c. Ventolin nebulizer, t.i.d. schedule, q.4h p.r.n. d. Norvasc 2.5 mg p.o. daily. e. Aspirin 81 mg p.o. daily. f. Dulcolax 10 mg p.r. daily p.r.n. constipation. g. Levaquin 500 mg p.o. daily for 8 additional days. h. Potassium 20 mEq p.o. once daily. i. Prednisone 20 mg p.o. once daily, decreasing by 5 mg every 2 days until complete. j. Florastor 250 mg p.o. once daily for 8 days. k. Senokot-S two tablets p.o. twice daily. l. Vitamin C 500 mg p.o. daily, same as at home. m. Vitamin D 5000 units p.o. daily, same as at home. n. Pletal 100 mg p.o. daily, same as at home. o. Vitamin B12 supplement 2000 mcg p.o. daily, same as at home. p. Finasteride 5 mg p.o. at bedtime, same as at home. q. Pravastatin 20 mg p.o. at bedtime, same as at home. r. Ramipril 5 mg p.o. daily, same as at home. s. Januvia 50 mg p.o. daily, same as at home. t. Flomax 0.4 mg p.o. daily, same as at home. 3. At the time of discharge, BUN 44, creatinine 1.42. 4. Labs: CBC and CMP in 1 week. Denton catheter. 5. Bed alarm. 6. PT/OT evaluation and treatment. 7. Speech Therapy evaluation and treatment. 8. Occupational Therapy evaluation and treatment. 9. Daily weight. 10. Fluid restriction, 1500 mL per day. 11. Diet: Softened, regular, 2 g sodium limitation, thickened liquids with meals, between meals may have clear water allowing Trinh Free Water Protocol. Dietary supplements per facility protocol, 2 to 3 cans per day depending on nutritional intake. 12. Allergies to penicillin. TOTAL DISCHARGE TIME: 55 minutes. Job ID: [id number]
[2018-11-11] MEDS: Aspirin 81 mg Enteric Coated Tablet PO SCH (08:26)
[2018-11-11] MEDS: Saccharomyces boulardii 250 MG CAP PO SCH (08:26)
[2018-11-11] MEDS: Famotidine 20 MG TAB PO SCH ×2 (08:26→19:46)
[2018-11-11] MEDS: predniSONE 20 MG TAB PO SCH (08:27)
[2018-11-11] MEDS: Amlodipine 5 MG TAB PO SCH (08:27)
[2018-11-11] MEDS: Insulin Regular 300 UNITS/3 ML VIAL SC PRN ×2 (13:38→17:51)
--- NOTE | 2018-11-11 16:13 | PRG ---
DATE OF SERVICE: 11/11/2018 INTERVAL HISTORY: The patient is seen and evaluated yesterday morning. Confirmed by case management. The patient had been accepted to halfway facility. All details of transfer completed by me. However, it appears the patient did not transfer. No communication provided regarding the change/cancellation of the discharge. While rounding on the floor today, happened to pass by the room, the patient present in the bed. Unfortunately, he has continued to be stable overnight. His IV has infiltrated. I spoke with the bedside nurse that this may remain out in his situation. On this visiting with the patient, he states he is feeling a bit stronger, breathing is better. He continues to hope that he will be able to go home soon. PHYSICAL EXAMINATION: VITAL SIGNS: Blood pressure 163/84, heart rate of 78, temperature 98.8, and saturating 93% on room air. GENERAL: This is a frail elderly gentleman, sitting up in bed, conversant. HEENT: Eyes are without conjunctival injection or scleral icterus. Oropharynx is clear without erythema, exudate, or thrush. NECK: Supple with full range of motion. HEART: Regular rate and rhythm. LUNGS: Overall good aeration bilaterally. ABDOMEN: Soft and nontender. GENITOURINARY: Denton catheter in place. EXTREMITIES: Without edema. NEUROLOGIC: He is able to move all extremities bilaterally to command. LABORATORY DATA: No new data to review. IMPRESSION: 1. Severe sepsis with acute organ dysfunction, on admission secondary to aspiration pneumonia, as well as urinary tract infection, pretreated in the context of antibiotic therapy with negative culture. 2. Hypotension, resolved. 3. Acute kidney injury, stabilized. 4. Metabolic acidosis/lactic acidosis, stabilized. 5. Elevated troponin secondary to demand ischemia, resolved. 6. Hyponatremia, improved. 7. Chronic diastolic congestive heart failure, compensated. 8. Chronic anemia, current hemoglobin 8.1. 9. Type 2 diabetes. 10. Essential hypertension. 11. Oropharyngeal dysphagia. 12. Dyslipidemia. 13. Coronary artery disease. 14. Benign prostatic hypertrophy with chronic indwelling Denton catheter. 15. Peripheral vascular disease. PLAN/RECOMMENDATIONS: Proceed with discharge to halfway facility when accepted via insurance. At this time, he is on oral antibiotics. Continuation of mobilization/physical therapy/occupational therapy. Job ID: [id number]
[2018-11-11] MEDS: Acetaminophen 325 MG/10.15 ML UDCUP PO PRN (17:56)
--- NOTE | 2018-11-11 18:49 | PRG ---
DATE OF SERVICE: 11/11/2018 SERVICE: Pulmonary Medicine. INTERVAL HISTORY: The patient is doing fine from respiratory standpoint. Denies any current chest pain, fevers, chills, nausea, or vomiting. Otherwise, there has been no interval change to the patient's condition. He is supposed to go to a half-way facility yesterday, but because of an insurance issue, he stuck around. Otherwise, there were no significant events. PHYSICAL EXAMINATION: VITAL SIGNS: Afebrile, blood pressure 156/83, respirations 18, saturation 92% on room air. GENERAL: The patient is awake and alert, in no apparent distress. LUNGS: Decent air entry. Dependently, there is decreased air entry with some crackling. No prolonged expiratory phase or wheezing is appreciated. HEART: Normal rate, regular. ABDOMEN: Soft, nontender, and nondistended. Bowel sounds are positive. MUSCULOSKELETAL: No cyanosis or clubbing. There is trace pitting in the bilateral lower extremities. ASSESSMENT: 1. Acute hypoxic respiratory failure. 2. Septic shock, resolved. 3. Community-acquired pneumonia. DISCUSSION AND PLAN: The patient is stable for transition out of the hospital. He will require a repeat chest x-ray in 4 to 6 weeks in the outpatient setting to verify the infiltrates and/or effusions resolve. Pulmonary will continue to follow, intermittently during the hospital stay. Job ID: [id number]
--- NOTE | 2018-11-11 18:53 | EKG ---
Test Reason : Blood Pressure : / mmHG Vent. Rate : 119 BPM Atrial Rate : 122 BPM P-R Int : 000 ms QRS Dur : 118 ms QT Int : 368 ms P-R-T Axes : 000 -42 069 degrees QTc Int : 517 ms Atrial fibrillation with rapid ventricular response Left axis deviation Consider right ventricular involvement in acute inferior infarct Abnormal ECG No changes from previous EKG Confirmed by JESSICA VICK DO ([id number]), online content editor LEANNE BARROSO ([id number]) on 11/11/2018 6:53:23 PM Referred By: Confirmed By:JESSICA VICK DO
[2018-11-12] MEDS: Albuterol Sulfate 2.5 mg/3 ml Neb NEB SCH ×3 (07:00→18:09)
[2018-11-12] MEDS: Saccharomyces boulardii 250 MG CAP PO SCH (08:39)
[2018-11-12] MEDS: Famotidine 20 MG TAB PO SCH ×2 (08:39→19:57)
[2018-11-12] MEDS: predniSONE 20 MG TAB PO SCH (08:39)
[2018-11-12] MEDS: Aspirin 81 mg Enteric Coated Tablet PO SCH (08:39)
[2018-11-12] MEDS: Amlodipine 5 MG TAB PO SCH (08:40)
--- NOTE | 2018-11-12 12:20 | PRG ---
DATE OF SERVICE: 11/12/2018 SUBJECTIVE: The patient was seen and examined at bedside. There were no any expected events overnight. OBJECTIVE: VITAL SIGNS: Blood pressure is 159/83, pulse is 92, respirations 17, and O2 saturation is 93% on room air. GENERAL: He is elderly gentleman, who is trying to recover from severe sepsis. He is showing generalized quite severe weakness all over. HEENT: His head is atraumatic and normocephalic. Eyes, pupils are responding to light properly. Conjunctivae are slightly palish. Oral mucosa is moist. NECK: Supple. LUNGS: Few crackles at both bases. HEART: S1 and S2, normal. No S3. No S4. ABDOMEN: Soft, nontender, and nondistended. Bowel sounds are present. No organomegaly. EXTREMITIES: No clubbing, cyanosis, or edema. NEUROLOGICAL: He follows my commands. He moves his all four extremities. LABORATORY DATA: Labs showed none. IMPRESSION: 1. Acute hypoxic respiratory failure. 2. Community-acquired pneumonia. 3. Severe sepsis with acute organ dysfunction. 4. Acute kidney injury, improved. 5. Chronic diastolic congestive heart failure, compensated. 6. Chronic anemia. 7. Type 2 diabetes mellitus. 8. Essential hypertension. We are going to restart his rest of the blood pressure, which we were put on hold since he was hypotensive at the time of admission. 9. Dyslipidemia. 10. Coronary artery disease. 11. Benign prostatic hypertrophy with chronic indwelling Denton catheter. 12. Peripheral vascular disease. PLAN: Proceed with discharge to retirement facility when the placement is arranged. Continue oral antibiotics. Continue PT, OT, and as I mentioned above, restart the rest of his blood pressure regimen. Job ID: [id number]
[2018-11-12 12:59] LABS: Anion Gap 18 mmol/L (10-20); BUN (Urea Nitrogen) 53 mg/dL (8.4-25.7); Calc. Creatinine Clearance 35 mL/min (70-130); Carbon Dioxide 19 mmol/L (23-31); Chloride 113 mmol/L (98-107); Estimated GFR-MDRD 52; Glucose 224 mg/dL (83-110); Potassium 3.7 mmol/L (3.5-5.1); Sodium 146 mmol/L (136-145)
[2018-11-12] MEDS: Insulin Regular 300 UNITS/3 ML VIAL SC PRN ×3 (13:14→20:19)
[2018-11-12] MEDS: Dextrose 5% in Water 1,000 ML IV SCH (18:17)
--- NOTE | 2018-11-12 18:27 | PRG ---
DATE OF SERVICE: 11/12/2018 SERVICE: Pulmonary Medicine. INTERVAL HISTORY: The patient is breathing comfortably. No events. His nurse is currently feeding him dinner. His appetite is actually a little bit better today. There has been no interval change to his condition. PHYSICAL EXAMINATION: VITAL SIGNS: Afebrile, pulse 91, blood pressure 162/88, respirations 17, and saturation 92% on room air. GENERAL: The patient is awake and alert, in no apparent distress. LUNGS: Decent air entry. No prolonged expiratory phase. I do not hear any rhonchi or crackles. HEART: Normal rate and regular. ABDOMEN: Soft, nontender, and nondistended. Bowel sounds are positive. MUSCULOSKELETAL: No cyanosis or clubbing. There is no pitting in the bilateral lower extremities. NEUROLOGIC: Grossly nonfocal. LABORATORY DATA: Sodium 146 and up trending, chloride 113. Bicarb 19. Basic metabolic profile is otherwise unremarkable. His creatinine is stable at 1.29. Blood cultures x2, influenza A and B, urine cultures negative. ASSESSMENT: 1. Acute hypoxic respiratory failure. 2. Septic shock, resolved. 3. Community-acquired pneumonia, status post full course of antibiotic. 4. Hypernatremia. 5. Dementia. DISCUSSION AND PLAN: The patient is stable for transition out of the hospital. He will need a repeat chest x-ray in 4 to 6 weeks in the outpatient setting to follow up the infiltrate/effusion. Pulmonary will continue to follow intermittently during the hospital stay. His sodium is a touch up, so I will give him 2 L of D5 water overnight. Job ID: [id number]
[2018-11-12] MEDS ORDERED: Finasteride 5 MG TAB PO SCH (21:00)
[2018-11-13] MEDS: Albuterol Sulfate 2.5 mg/3 ml Neb NEB SCH ×3 (02:00→12:57)
[2018-11-13] MEDS: Dextrose 5% in Water 1,000 ML IV SCH (04:40)
[2018-11-13] MEDS ORDERED: predniSONE 20 MG TAB PO SCH (08:00)
[2018-11-13] MEDS: Saccharomyces boulardii 250 MG CAP PO SCH (08:19)
[2018-11-13] MEDS: Famotidine 20 MG TAB PO SCH (08:19)
[2018-11-13] MEDS: Aspirin 81 mg Enteric Coated Tablet PO SCH (08:19)
[2018-11-13] MEDS: Amlodipine 5 MG TAB PO SCH (08:20)
[2018-11-13] MEDS ORDERED: Ascorbic Acid 500 mg Chewable Tablet PO SCH (09:00)
[2018-11-13] MEDS ORDERED: Ramipril 5 MG CAP PO SCH (09:00)
[2018-11-13] MEDS ORDERED: Alogliptin 25 MG TAB PO SCH (09:00)
[2018-11-13] MEDS ORDERED: Cilostazol 100 MG TAB PO SCH (09:00)
[2018-11-13] MEDS ORDERED: Cyanocobalamin (Vitamin B-12) 1,000 MCG TAB PO SCH (09:00)
[2018-11-13] MEDS: Insulin Regular 300 UNITS/3 ML VIAL SC PRN (12:08)
[2018-11-13] MEDS ORDERED: Sodium Chloride 0.45% 1,000 ML IV SCH (12:45)
--- NOTE | 2018-11-13 13:01 | PRG ---
DATE OF SERVICE: 11/13/2018 SUBJECTIVE: There were no any overnight unexpected events, although the nurse questions his mental status. Sometimes, he responds properly. Sometimes, he does not. OBJECTIVE: VITAL SIGNS: Blood pressure is 162/58, pulse is 95, respiratory rate is 18, O2 saturation 94% on room air. GENERAL: He is an elderly man. He tries to answer my questions. Most of the time, he is appropriate. HEENT: His oral mucosa is somewhat dry. Pupils are responding to light properly. LUNGS: Clear. HEART: S1 and S2 normal. ABDOMEN: Soft, nontender. EXTREMITIES: No clubbing, cyanosis, or edema. He has a [place] catheter in. LABORATORY DATA: Glucose is ranging from 219 to 250. His sodium from yesterday is 146, chloride 113, CO2 19, BUN 53, and creatinine 1.29. IMPRESSION: CANCELED DICTATION Job ID: [id number]
[2018-11-13 15:08] VITALS: BMI 21.3
[2018-11-13 17:08] VITALS: BP 136/86; TEMP 97.3
[2018-11-13] MEDS: Acetaminophen 325 MG/10.15 ML UDCUP PO PRN (17:29)
[2018-11-13] MEDS ORDERED: Amlodipine 5 MG TAB PO SCH (21:00)
--- NOTE | 2018-11-14 14:00 | DIS ---
DATE OF ADMISSION: 11/03/2018 DATE OF DISCHARGE: 11/13/2018 Originally, Mr. Bashir was supposed to be discharged on November 10, 2018, but the discharge was postponed and he stayed in the hospital additional three days since the family was not able to take care of him and they requested a [facility] facility placement. In the meantime, he received IV fluids and he is going to be discharged today. Please refer to previous discharge summary dictated by Dr. Soto on the November 10, 2018. He is supposed to have x-ray done in four weeks and follow up with Dr. Gould in four weeks. Job ID: [id number]
== END 2018-11-13 17:38 | DRG 871 ==
LOC: ERS 10:52 → ERHOLD 13:04 → CCU 11-04 07:18 → 2NO 11-04 19:02 → T4-A 11-05 14:06
PROVIDERS: ADMIT Internal Medicine; ATTEND Internal Medicine
PROC: 02HV33Z Insertion of Infusion Device into Superior Vena Cava, Percutaneous Approach (ICD-10-PCS; principal; 2018-11-03)
DX: A41.9 Sepsis, unspecified organism (principal); J96.01 Acute respiratory failure with hypoxia; R65.21 Severe sepsis with septic shock; G92 Toxic encephalopathy; J69.0 Pneumonitis due to inhalation of food and vomit; T83.511A Infection and inflammatory reaction due to indwelling urethral catheter, initial encounter; N17.9 Acute kidney failure, unspecified; I13.0 Hypertensive heart and chronic kidney disease with heart failure and stage 1 through stage 4 chronic kidney disease, or unspecified chronic kidney disease; I50.32 Chronic diastolic (congestive) heart failure; E87.2 Acidosis; I24.8 Other forms of acute ischemic heart disease; E87.1 Hypo-osmolality and hyponatremia; E87.0 Hyperosmolality and hypernatremia; N39.0 Urinary tract infection, site not specified; N40.0 Benign prostatic hyperplasia without lower urinary tract symptoms; E78.5 Hyperlipidemia, unspecified; E11.51 Type 2 diabetes mellitus with diabetic peripheral angiopathy without gangrene; I25.10 Atherosclerotic heart disease of native coronary artery without angina pectoris; E11.22 Type 2 diabetes mellitus with diabetic chronic kidney disease; N18.3 Chronic kidney disease, stage 3 (moderate); D63.1 Anemia in chronic kidney disease; Z87.891 Personal history of nicotine dependence; Z88.0 Allergy status to penicillin; Z95.1 Presence of aortocoronary bypass graft; Z66 Do not resuscitate; F03.90 Unspecified dementia, unspecified severity, without behavioral disturbance, psychotic disturbance, mood disturbance, and anxiety; R13.12 Dysphagia, oropharyngeal phase; E83.39 Other disorders of phosphorus metabolism; E83.42 Hypomagnesemia; L89.152 Pressure ulcer of sacral region, stage 2; L89.621 Pressure ulcer of left heel, stage 1; L89.611 Pressure ulcer of right heel, stage 1; L89.891 Pressure ulcer of other site, stage 1; Z79.84 Long term (current) use of oral hypoglycemic drugs; Z79.82 Long term (current) use of aspirin; Z79.899 Other long term (current) drug therapy; Z96.652 Presence of left artificial knee joint; Y84.6 Urinary catheterization as the cause of abnormal reaction of the patient, or of later complication, without mention of misadventure at the time of the procedure
CPT/HCPCS: 36415; 36416; 36556; 51703; 71045; 74176; 76705; 80048; 80053; 80069; 80202; 81003; 81015; 82533; 82550; 82553; 82607; 82728; 82746; 83540; 83550; 83605; 83690; 83735; 83880; 84100; 84484; 85007; 85014; 85018; 85025; 85027; 85049; 85060; 85610; 85730; 87040; 87086; 87804; 93005; 94640; 96365; 96366; 96374; 96375; G8978-GP-CM; G8979-GP-CK; G8987-GO-CL; G8988-GO-CJ; G8996-GN-CK; G8997-GN-CI; G8997-GN-CJ; J1630; J1644; J1720; J1815; J1956; J3370; J3475; J3490; J7042; J7050; J7506; J7611; S0028